=== PATIENT | male | born 1955 | race Caucasian/White ===

== ENCOUNTER 2017-03-28 08:39 | Outpatient (CLI) | payer MEDICARE ==
--- NOTE | 2017-03-28 11:40 | CT ---
CT CHEST WITH IV CONTRAST: HISTORY: Abnormal chest radiograph. Cough. FINDINGS: Centered at the superior segment left lower lobe, a predominantly cavitary irregularly-shaped mass me asures up to 4.7 cm length x 4.7 cm width x 5.8 cm depth. It abuts the posterolateral and anterior p leura. Surrounding parenchymal/airspace opacity includes central air bronchograms. A small amount o f fluid layers within the dependent portion of the cavitary lesion. Lungs are otherwise hyperinflated. Calcified granulomata within the mediastinum and lungs and spleen are consistent with healed granulomatous disease. No evidence of mediastinal adenopathy. There is calcification in the arterial structures. IMPRESSION: 1. Large cavitary left lower lobe superior segment mass. Neoplasm is favored over infection. Pleas e consider pulmonary medicine valuation for potential bronchoscopy. 2. Atherosclerosis. Findings were called to [place] at the office of Dr. Izquierdo, at 1023 hours. CODE CR POS: [facility]
== END 2017-03-28 08:40 | disposition home or self-care (01) ==
LOC: CT 08:39
PROVIDERS: ATTEND Family Medicine
DX: R93.8 Abnormal findings on diagnostic imaging of other specified body structures (principal); I70.90 Unspecified atherosclerosis; R91.8 Other nonspecific abnormal finding of lung field
CPT/HCPCS: 71260

== ENCOUNTER 2017-04-01 09:15 | Inpatient (IN) | payer MEDICARE ==
[2017-04-01 09:56] LABS: Hemoglobin 10.1 g/dL (14.0-18.0); Mean Corpuscular HGB CONC 31.8 g/dL (32.0-36.0); Mean Corpuscular Hemoglobin 28.4 pg (27.0-31.0); Mean Corpuscular Volume 89.3 fl (80.0-94.0); Mean Platelet Volume 8.7 fL (7.4-10.4); Platelet Count 394 thou/uL (130-400); RBC Distribution Width 14.4 % (11.5-14.5); Red Blood Cell (RBC) Count 3.55 mill/uL (4.70-6.10); White Blood Cell (WBC) Count 20.8 thou/uL (4.8-10.8)
[2017-04-01 10:13] LABS: Anisocytosis SLIGHT = 6-15 cells (100X) (0-5/hpf); Band 5 % (5-11); Eosinophils 1 % (0-10); Hypochromia SLIGHT = 6-15 cells (100X) (0-5/hpf); Lymphocytes 1 % (21-51); MDiff Complete? YES; Monocytes 3 % (0-10); Neutrophil 90 % (42-75); PLT Morphology Comment Appears Adequate
[2017-04-01 10:19] LABS: ALT (SGPT) 16 U/L (8-55); AST (SGOT) 18 U/L (5-34); Albumin 3.5 g/dL (3.4-4.8); Alkaline Phosphatase 153 U/L (40-150); Anion Gap 19 mmol/L (10-20); BUN (Urea Nitrogen) 13 mg/dL (8.4-25.7); Bilirubin, Total 0.2 mg/dL (0.2-1.2); CK (CPK) 45 U/L (30-200); Calc. Creatinine Clearance 0 mL/min (70-130); Carbon Dioxide 19 mmol/L (23-31); Chloride 101 mmol/L (98-107); Estimated GFR-MDRD 60; Globulin 3.9 g/dL (2.4-3.5); Glucose 110 mg/dL (80-115); Potassium 3.9 mmol/L (3.5-5.1); Protein, Total 7.4 g/dL (5.8-8.1); Sodium 135 mmol/L (136-145)
[2017-04-01 10:30] LABS: CKMB 0.9 ng/mL (0-6.6); Troponin I 0.029 ng/mL (< 0.028)
--- NOTE | 2017-04-01 10:47 | RAD ---
SINGLE VIEW CHEST: Date: 04/01/17 COMPARISON: CT chest dated 03/28/17. HISTORY: Shortness of breath. FINDINGS: Single view of the chest shows normal sized cardiomediastinal silhouette. There is an infiltrate proj ecting over the mid portion of the left thorax with central cavitation. This corresponds to abnormali ty on CT. No pneumothorax or pleural effusion is seen. IMPRESSION: Cavitary infiltrate in the left lung. POS: [facility]
[2017-04-01] MEDS ORDERED: Ondansetron ODT 4 MG TAB PO PRN (14:11)
[2017-04-01] MEDS ORDERED: HYDROcodone/Acetaminophen 10/325 mg Tablet PO PRN (14:11)
[2017-04-01] MEDS ORDERED: Acetaminophen 325 MG TAB PO PRN (14:11)
[2017-04-01] MEDS ORDERED: ABATACEPT 125 MG SC SCH (14:15)
[2017-04-01] MEDS: Sodium Chloride 0.9% 1,000 ML IV SCH (14:43)
[2017-04-01] MEDS ORDERED: Sodium Chloride 0.9% 1,000 ML IV SCH (16:00)
--- NOTE | 2017-04-01 20:10 | HP ---
ADMITTING PHYSICIAN: Luis Izquierdo M.D. HISTORY OF PRESENT ILLNESS: Patient is a 61-year-old white male well known to me, has a history of s evere rheumatoid arthritis with chronic pain, recently discovered by me to have a cavitary lesion by chest x-ray as well as CT scan. He has a bronchoscopies scheduled for tomorrow by Dr. Salas. Ken carey this time at preregistration, he was feeling extremely weak, tired, notes that he had nearly passe d out, although he denies any loss of consciousness himself. He was brought to the emergency room; t here, he was given IV fluids. After finding to be hypotensive, he has not noted any fever, nausea, v omiting, diarrhea. He does report though he lost over 40 panels over the last several months and thi s is known and documented in my previous notes. As noted, he has recently had a chest x-ray which re vealed a cavitary lesion of his left middle lung field and he has also had a recent CT scan revealed same, which is peculiar for possible neoplastic disease. He has undergone DASHAWN smears, thus far they have been negative. Otherwise, no other medical complaints. At the time of my history though he was stating he was feeling better. He was actually able to sit up in the room. Otherwise, no other medical complaints. PAST MEDICAL HISTORY: Significant for rheumatoid arthritis, chronic pain, hyperlipidemia, previous C [facility]. PAST SURGICAL HISTORY: Otherwise noncontributory. SOCIAL AND PERSONAL HISTORY: He is . He does not smoke. He is a former tobacco user. He brantley s also used other forms of drugs many years ago. ALLERGIES: He has no known allergies. CURRENT MEDICATIONS: Quinapril/hydrochlorothiazide 20/12.5 one daily, bupropion 150 mg daily, Cresto r 10 mg daily, Lyrica 100 mg b.i.d., lansoprazole 30 mg daily, prednisone 1 mg daily, leflunomide 20 mg orally, amlodipine 5 mg daily, [place] 10//325 one tablet as needed for pain. He is also on oral mo rphine. PHYSICAL EXAMINATION: VITAL SIGNS: Temperature 98.6, BP was 174/50, O2 sat 95% on 2 liters. GENERAL: This is an elderly-appearing male appears to be a little bit older than stated age and does not appear to be in any respiratory or neurological distress. HEENT: Normocephalic, atraumatic. Sclerae and conjunctivae are clear. NECK: Supple, no bruits, no masses are auscultated. Thyroid is midline without thyromegaly or thyro id masses. LUNGS: Reveal bilateral breath sounds, just mild wheezing noted on the left eye. HEART: Regular rate and rhythm without murmur, gallops or rubs. ABDOMEN: Soft, nontender, bowel sounds are present and active. No hepatosplenomegaly is noted. EXTREMITIES: No clubbing, edema or cyanosis noted at this time. LABORATORY DATA: Hemoglobin is 10.1, hematocrit 31.7, white blood count is 20.8, sodium 135, potassi um 3.9, chloride 101, CO2 of 19, BUN 13, creatinine 1.22, troponin was indeterminately elevated at 0. 2. EKG reveals sinus rhythm without evidence of acute changes. Alkaline phosphatase is slightly elevate d at 153 otherwise. IMPRESSION: Weakness, dehydration, most likely this morning with pending bronchoscopies for tomorrow due to cavitary lesion of the left lung. PLAN: Patient will be adequately hydrated. We will go ahead and get Pulmonary consult. I do think it would be safer and continue his bronchoscopy tomorrow.
[2017-04-01] MEDS: Bupropion 150 MG SR TAB PO SCH (20:44)
[2017-04-01] MEDS ORDERED: Rosuvastatin 20 MG TAB PO SCH (21:00)
[2017-04-01] MEDS ORDERED: OXYMORPHONE HCL 40 MG PO SCH (21:00)
[2017-04-01] MEDS ORDERED: Oxymorphone Hcl [Opana Er] 40 MG PO SCH (21:00)
[2017-04-01] MEDS ORDERED: Gabapentin 300 MG CAP PO SCH (21:00)
--- NOTE | 2017-04-01 23:52 | CON ---
DATE OF CONSULTATION: 04/01/2017 SERVICE: Pulmonary Medicine. REASON FOR CONSULTATION: Respiratory failure. HISTORY OF PRESENT ILLNESS: The patient is a 61-year-old white male. Recently, he has had greater t orta a 40-pound weight loss over the last 6 weeks and has had intermittent hemoptysis. A chest x-ray demonstrated a cavitary lesion. He was seen by Dr. Salas in the outpatient setting. He was set up for bronchoscopy today. The patient was talking to the budget office today. He had a horrendous we akness spell. He was found to be a little hypoxemic in the emergency department and ultimately, was admitted to the hospital. He notes having intermittent episodes of febrile illness, lack of strength which has been progressive over a long period of time, hemoptysis, and night sweats. Otherwise, he is in his usual state of health and there has been no interval change to his condition. PAST MEDICAL HISTORY: 1. Rheumatoid arthritis. 2. Hypertension. 3. Dyslipidemia. 4. Chronic pain syndrome. 5. History of stroke. PAST SURGICAL HISTORY: None. FAMILY HISTORY: Noncontributory. SOCIAL HISTORY: He has a history of smoking but quit many years ago. He denies any alcohol or illic it drugs. He is currently disabled and has multiple chronic pain issues. He is . He denies any exposure to chemicals, dust, asbestos, or tuberculosis. ALLERGIES: No known drug allergies. MEDICATIONS: List of his inpatient medications was reviewed. No specific updates were made at this time. REVIEW OF SYSTEMS: General, head, ears, eyes, nose, throat, cardiovascular, respiratory, GI, , mus culoskeletal, neurologic, and skin is negative except as mentioned in the HPI. PHYSICAL EXAMINATION: VITAL SIGNS: Afebrile, pulse 87, blood pressure 83/57, respirations 20, saturation 95% on 2 liters n bhavani cannula. GENERAL: The patient is awake and alert, in no apparent distress. LUNGS: Decent air entry. There is a slightly prolonged expiratory phase, but I do not appreciate wh eezing, rhonchi, or crackles. HEART: Normal rate, regular. ABDOMEN: Soft, nontender, nondistended. Bowel sounds are positive. MUSCULOSKELETAL: No cyanosis or clubbing. There is no pitting in the bilateral lower extremities. NEUROLOGIC: Grossly nonfocal. LABORATORY DATA: WBCs 20.8, hemoglobin 10.1, platelets 394,000. Neutrophil count is 90% with 5% ban ds. Basic metabolic profile and liver function studies were otherwise unremarkable. Troponin 0.029. Liver function studies were unremarkable. BNP was previously unremarkable. Lactate is normal. Ur inalysis is also unremarkable. Sputum for acid-fast bacilli is negative to date. Culture is current ly pending. IMAGIN. CT of the chest demonstrates cavitary mass in the left lower lobe. It appears as though the supe rior segment, posterior segment, and lateral segment of the left lower lobe all likely lead in an are a of the mass. Otherwise, there is no cardiopulmonary abnormality identified. 2. Chest x-ray demonstrates a cavitary mass that was previously noted on CT scan. There is no new c ardiopulmonary abnormality identified. ASSESSMENT: 1. Cavitary mass. 2. Leukocytosis. PLAN: At this point, we will hold his blood pressure medications because he has marginal blood press ures. He was previously scheduled for a bronchoscopy tomorrow morning and I do not see anything that is going to prevent us from perhaps proceeding with that. We will make him n.p.o. after midnight. After the sample was collected, empiric antibiotics could be initiated. Our differential remains wid e and includes infectious, neoplastic, and inflammatory conditions. We will know more after a sample can be obtained.
[2017-04-02] MEDS: Sodium Chloride 0.9% 1,000 ML IV SCH (04:39)
[2017-04-02] MEDS ORDERED: Fentanyl 100 MCG/2 ML VIAL ONE (06:53)
[2017-04-02] MEDS ORDERED: Lidocaine 1% (PF) 30 ML VIAL ONE (07:12)
[2017-04-02] MEDS ORDERED: Succinylcholine Chloride 20 MG/ML 10 ml SYRINGE FS ONE ×2 (07:24→15:22)
[2017-04-02] MEDS ORDERED: Calcium Carbonate 600 MG TAB PO SCH (09:00)
[2017-04-02] MEDS ORDERED: Folic Acid 1 MG TAB PO SCH (09:00)
[2017-04-02] MEDS ORDERED: VITAMIN E 1000 UNIT PO SCH (09:00)
[2017-04-02] MEDS ORDERED: ERGOCALCIFEROL 800 UNIT PO SCH (09:00)
[2017-04-02] MEDS ORDERED: Hydrochlorothiazide 25 MG TAB PO SCH (09:00)
[2017-04-02] MEDS ORDERED: Clopidogrel Bisulfate 75 MG TAB PO SCH (09:00)
[2017-04-02] MEDS ORDERED: Non-Formulary Item 1 EACH (Lansoprazole [Lansoprazole] 30 MG) PO SCH (09:00)
--- NOTE | 2017-04-02 09:14 | OP ---
DATE OF PROCEDURE: 04/02/2017 PROCEDURES PERFORMED: Fiberoptic bronchoscopy with endobronchial biopsy, transbronchial biopsy, wash ings, and brushings. PREOPERATIVE DIAGNOSIS: Lung mass. POSTOPERATIVE DIAGNOSIS: Lung mass cavitary. ANESTHESIA: General endotracheal. DESCRIPTION OF PROCEDURE: Informed consent was obtained from the patient prior to the procedure. He understood the risks involved and agreed to proceed. The patient was brought to the endoscopy suite and was intubated by Anesthesia and given general anes thesia. An adaptor was placed on the patient's endotracheal tube while he was on mechanical ventilat ion. Scope was placed through the adaptor into the endotracheal tube. The trachea was normal in balta earance. There was some mucus present at the farrukh. The right mainstem bronchus, right upper lobe, right middle lobe and right lower lobe were normal in appearance. Of note, the right upper lobe had four segments instead of three. The left mainstem bronchus was normal in appearance. The left uppe r lobe was normal in appearance. 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 A series of endobronchial brushings were done in this region. The scope could be passed around this. I coul d not get the scope to retroflex entirely up into the superior segment as the cavitary mass kept push ing the brush and biopsy forceps downward. A series of brushings and washings were done in this faith on. He tolerated the procedure well and was sent to the recovery room in stable condition.
[2017-04-02] MEDS: Bupropion 150 MG SR TAB PO SCH (10:08)
[2017-04-02 13:26] VITALS: BMI 24.5
--- NOTE | 2017-04-02 13:33 | DPRG ---
DATE OF SERVICE: 04/02/2017 Mr. Jiménez was admitted yesterday with a near syncopal episode. He has undergone successful bronchos copy which appeared this had been planned by Dr. Salas. Specimens are pending. He is ready to go home. On discharge he notes no further lightheadedness, dizziness at this time. PHYSICAL EXAMINATION LUNGS: Clear. HEART: Reveals a regular rate and rhythm without murmurs, gallops or rubs. ABDOMEN: Soft, nontender, bowel sounds are active. No hepatosplenomegaly is noted. IMPRESSION: (At the time of admission). Syncopal episode with a history of a mass defined by CT on his left lung. He had a bronchoscopy performed and tolerated that well. Pathology is now pending. PLAN: He will be discharged home on his home medications and follow up on a p.r.n. basis once his p athology is defined.
[2017-04-02] MEDS ORDERED: Lidocaine 1% PF 5 ML VIAL ONE (15:22)
[2017-04-02] MEDS ORDERED: Ondansetron HCl/PF 4 MG/2 ML Vial ONE (15:22)
[2017-04-02] MEDS ORDERED: PHENYLEPHRINE-NS 100 MCG/ML 10 ML SYRINGE ONE (15:22)
[2017-04-02] MEDS ORDERED: Dexamethasone 20 MG/5 ML VIAL ONE (15:22)
[2017-04-02] MEDS ORDERED: Propofol 200 MG/20 ML VIAL ONE (15:22)
[2017-04-02 19:30] VITALS: BP 100/66; TEMP 98.7
[2017-04-05 10:21] LABS: Fungus Stain Final report (.)
--- NOTE | 2017-04-06 14:21 | EKG ---
Test Reason : DYSPNEA Blood Pressure : / mmHG Vent. Rate : 105 BPM Atrial Rate : 105 BPM P-R Int : 118 ms QRS Dur : 084 ms QT Int : 312 ms P-R-T Axes : 054 052 040 degrees QTc Int : 412 ms Sinus tachycardia Nonspecific ST abnormality Abnormal ECG Confirmed by MARQUEZ KELLEY, TUSHAR ([id number]), telegraph editor OLIMPIA GOODWIN ([id number]) on 04/06/2017 2:21:31 PM Referred By: Confirmed By:TUSHAR ZAYAS MD
[2017-04-08] MEDS ORDERED: ABATACEPT 125 MG SC SCH (09:00)
== END 2017-04-02 19:30 | disposition home or self-care (01) | DRG 204 ==
LOC: ERS 09:15 → ERHOLD 10:58 → T4-B 14:12
PROVIDERS: ADMIT Family Medicine; ATTEND Family Medicine
PROC: 0BDB8ZX Extraction of Left Lower Lobe Bronchus, Via Natural or Artificial Opening Endoscopic, Diagnostic (ICD-10-PCS; principal; 2017-04-02)
DX: R91.8 Other nonspecific abnormal finding of lung field (principal); I95.9 Hypotension, unspecified; E86.0 Dehydration; E78.5 Hyperlipidemia, unspecified; I10 Essential (primary) hypertension; Z86.73 Personal history of transient ischemic attack (TIA), and cerebral infarction without residual deficits; M06.9 Rheumatoid arthritis, unspecified; Z87.891 Personal history of nicotine dependence; R53.1 Weakness
CPT/HCPCS: 36415; 71045; 80053; 82550; 82553; 83605; 83880; 84484; 85025; 87070; 87077; 87102; 87116; 87186; 87205; 87206; 88112; 88305; 88312; 88313; 93005; 94760; 96360; J1100; J2001; J2405; J2704; J3010

== ENCOUNTER 2017-04-26 07:48 | Outpatient (CLI) | payer MEDICARE ==
--- NOTE | 2017-04-26 08:30 | RAD ---
PA AND LATERAL VIEWS OF CHEST: Date: 04/26/17 HISTORY: Dyspnea. FINDINGS: Comparison made with exam of 04/01/17. The heart size is normal. The lungs are expanded. The cavitary lesion in the left lung is again seen with improvement in the adjacent infiltrate. No pneumothoraces or pleural effusions are seen. IMPRESSION: Interval improvement without resolution of left lung findings since 04/01/17. POS: [facility]
== END 2017-04-26 07:49 | disposition home or self-care (01) ==
LOC: RAD 07:48
PROVIDERS: ATTEND Internal Medicine Critical Care Medicine
DX: R06.00 Dyspnea, unspecified (principal)
CPT/HCPCS: 71046

== ENCOUNTER 2017-05-22 14:23 | Outpatient (CLI) | payer MEDICARE ==
--- NOTE | 2017-05-22 16:00 | RAD ---
CHEST PA AND LATERAL: 05/22/17 HISTORY: 61-year-old male with history of dyspnea. COMPARISON: 04/26/17. FINDINGS: There is a persistent but decreasing size pneumocyst/cavity in the superior segment of the left lowe r lobe decreasing in size as well as decreasing in wall thickness when compared to the 04/26/17 study. Heart size is normal. Stable old granulomatous disease. Biapical pleural thickening. IMPRESSION: Decrease in size cavity in the superior segment of the left lower lobe with decrease in wall thicknes s. Biapical pleural thickening. Old granulomatous disease. POS: [facility]
== END 2017-05-22 14:24 | disposition home or self-care (01) ==
LOC: RAD 14:23
PROVIDERS: ATTEND Internal Medicine Critical Care Medicine
DX: R06.00 Dyspnea, unspecified (principal); J84.10 Pulmonary fibrosis, unspecified; J92.9 Pleural plaque without asbestos
CPT/HCPCS: 71046

== ENCOUNTER 2017-07-10 08:09 | Outpatient (CLI) | payer MEDICARE | END 2017-07-10 08:10 | disposition home or self-care (01) | LOC: BICCT 08:09 | PROVIDERS: ATTEND Family Medicine | DX: I63.8 Other cerebral infarction (principal); G45.9 Transient cerebral ischemic attack, unspecified; Z86.73 Personal history of transient ischemic attack (TIA), and cerebral infarction without residual deficits | CPT/HCPCS: 70450 ==

== ENCOUNTER 2017-07-25 09:25 | Observation (INO) | payer MEDICARE ==
[2017-07-25 09:51] LABS: #Basophils 0.1 thou/uL (0.0-0.2); #Eosinphils 0.4 thou/uL (0.0-0.7); #Lymphocytes 1.1 thou/uL (1.20-3.40); #Monocytes 0.5 thou/uL (0.11-0.59); #Neutrophils 5.5 thou/uL (1.40-6.50); %Basophils 0.9 % (0.0-1.0); %Eosinophils 5.3 % (0.0-10.0); %Lymphocytes 14.5 % (21.0-51.0); %Monocytes 7.1 % (0.0-10.0); %Neutrophils 72.3 % (42.0-75.0); Hemoglobin 11.7 g/dL (14.0-18.0); Mean Corpuscular HGB CONC 33.6 g/dL (32.0-36.0); Mean Corpuscular Hemoglobin 28.2 pg (27.0-31.0); Mean Corpuscular Volume 83.8 fl (80.0-94.0); Mean Platelet Volume 9.9 fL (7.4-10.4); Platelet Count 209 thou/uL (130-400); RBC Distribution Width 14.9 % (11.5-14.5); Red Blood Cell (RBC) Count 4.14 mill/uL (4.70-6.10); White Blood Cell (WBC) Count 7.6 thou/uL (4.8-10.8)
[2017-07-25 10:11] LABS: ALT (SGPT) 7 U/L (8-55); AST (SGOT) 11 U/L (5-34); Albumin 4.6 g/dL (3.4-4.8); Alkaline Phosphatase 70 U/L (40-150); Anion Gap 21 mmol/L (10-20); BUN (Urea Nitrogen) 31 mg/dL (8.4-25.7); Bilirubin, Total Less than 0.2 mg/dL (0.2-1.2); CK (CPK) 241 U/L (30-200); Calc. Creatinine Clearance 0 mL/min (70-130); Carbon Dioxide 13 mmol/L (23-31); Chloride 109 mmol/L (98-107); Estimated GFR-MDRD 38; Glucose 118 mg/dL (80-115); Potassium 4.6 mmol/L (3.5-5.1); Protein, Total 7.6 g/dL (5.8-8.1); Sodium 138 mmol/L (136-145)
[2017-07-25 10:16] LABS: CKMB 2.6 ng/mL (0-6.6); Troponin I Less than 0.010 ng/mL (< 0.028)
[2017-07-25] MEDS ORDERED: ISOVUE-370 76%-LOCM 1 ML ONE (11:01)
--- NOTE | 2017-07-25 11:18 | RAD ---
PORTABLE UPRIGHT FRONTAL CHEST RADIOGRAPH: Date: 07-25-17 Comparison: 04-01-17 History: Syncope. FINDINGS: There is widening of the superior mediastinum when compared to the prior examination, which may be se condary to portable technique and shallow inspiration. There is patchy linear density in the left perihilar region and medial left lung base. No pneumothora x, lobar consolidation, or alveolar edema. IMPRESSION: Widened superior mediastinum, significance uncertain given portable imaging. Thus, PA and lateral emiliano ging of the chest is advised to better evaluate the mediastinum. POS: [facility]
--- NOTE | 2017-07-25 11:54 | CT ---
CTA CHEST WITH 3D VOLUME RENDERING: Date: 07/25/17 COMPARISON: 03/28/17. CLINICAL HISTORY: Dyspnea, near syncope, shortness of breath. FINDINGS: There is no large, central filling defect of pulmonary arterial system to indicate acute pulmonary em bolus. Redemonstration of lobular cystic lesion of the superior segment left lower lobe abutting the left ma renato fissure. The lesion has decreased in size from prior exam with near complete interval resolution of surrounding parenchymal density. There does remain surrounding ground-glass opacity and interstiti al prominence, as well as overlying dural thickening. Redemonstration of calcific density of the subp leura of the right lower lobe. There is also nonspecific scattered subpleural ground-glass opacificat ion. No effusion or pneumothorax. There is scattered vascular disease, including dense coronary arter y calcium. Prominent bilateral retroareolar densities may relate to gynecomastia. Imaged upper abdome n reveals no acute findings. There is an incompletely assessed, partially visualized hypodensity of t he right hepatic lobe. There are diffuse granulomatous calcifications. No additional significant interval detrimental change. IMPRESSION: 1. No large, central pulmonary embolus. 2. Redemonstration of lobular cystic lesion of the superior segment left lower lobe with interval de crease of surrounding parenchymal consolidation. This may relate to residua from infectious/inflammat ory process. There does remain a degree of mild surrounding ground-glass reticulonodularity. Follow-u p with pulmonary medicine consultation is warranted for continued care. POS: [facility]
[2017-07-25 11:58] LABS: Bilirubin Negative (Negative); Blood, Urine Negative (Negative); Clarity CLEAR (Clear); Glucose, Urine (Dipstick) Negative (Negative); Leukocyte Negative (Negative); Nitrite Negative (Negative); Protein, Urine (Dipstick) Negative (Neg-Trace); Specific Gravity, Urine 1.021 (1.002-1.036); Urobilinogen 0.2 mg/dL (0.2-1.0)
[2017-07-25 13:10] LABS: Troponin I Less than 0.010 ng/mL (< 0.028)
[2017-07-25] MEDS ORDERED: Ondansetron HCl/PF 4 MG/2 ML Vial IVP PRN (15:18)
[2017-07-25] MEDS ORDERED: Ondansetron ODT 4 MG TAB SL PRN (15:18)
[2017-07-25 16:14] VITALS: BMI 24.4
[2017-07-25] MEDS: Sodium Chloride 0.9% 1,000 ML IV SCH ×3 (16:15→21:12)
[2017-07-25] MEDS: predniSONE 1 MG TAB PO SCH ×2 (18:15→21:15)
[2017-07-25] MEDS ORDERED: Rosuvastatin 20 MG TAB PO SCH (21:00)
[2017-07-25] MEDS: Bupropion 150 MG SR TAB PO SCH (21:13)
[2017-07-25] MEDS: Pregabalin 50 MG CAP PO SCH (21:15)
[2017-07-26] MEDS: Sodium Chloride 0.9% 1,000 ML IV SCH ×3 (00:46→14:13)
--- NOTE | 2017-07-26 04:35 | HP ---
CHIEF COMPLAINT: Near syncope. HISTORY OF PRESENT ILLNESS: Mr. Jiménez is a 62-year-old male patient of Dr. Luis Izquierdo who was brought to the emergency room by personnel from the [facility]. He had been referred to them for pain management by Dr. Izquierdo and upon arrival in their office, had a near syncopal episode, short of breath, tachycardic. He was sent to the emergency room for further evalua tion where he was found to be orthostatic and was given some fluids and his pressure, sitting or lyin g down, was 100 to 115, but when he would stand up and go, the systolic was dropped into the low 80s, so he was admitted for further fluid hydration. PAST MEDICAL HISTORY: Positive for chronic pain syndrome associated with rheumatoid arthritis. He h as got a cavitating left upper lobe lung lesion being followed by Dr. Salas with Pulmonology. He h ad a recent evaluation of this lesion in March of this year, was found to be benign in nature and n o obvious cause other than inflammation. Also has a history of hypertension, hyperlipidemia, previou s CVA with no obvious musculoskeletal deficits noted. PAST SURGICAL HISTORY: None. FAMILY HISTORY: Noncontributory. SOCIAL HISTORY: He is disabled due to his pain. He has quit smoking many years ago. He is , has no toxic habits. ALLERGIES: REGLAN causes a dystonic-type reaction. CURRENT MEDICATIONS: He takes quinapril/hydrochlorothiazide 20/12.5 daily. He takes amlodipine 5 mg daily. He is on Crestor 10 mg daily, Prevacid 30 mg daily, Wellbutrin 150 mg daily, Lyrica 100 mg t wice a day, prednisone 1 mg q.6 hours, leflunomide 20 mg daily. He is also get a [place], fentanyl p atch 20 mcg a day. He is on day #5. REVIEW OF SYSTEMS: He denies any headache or visual changes. No trouble chewing or swallowing. No fevers or chills. Denies any chest pain, no cough, no hemoptysis. Denies any changes in bowel or bl adder habits. No abdominal pain, no nausea, no vomiting. Denies any hematemesis. Denies any diarrh ea, denies any hematochezia or bright red blood per rectum. Denies any dysuria or hematuria. Denies any seizure activity. No paresis or paresthesias. Denies any homicidal or suicidal ideations. PHYSICAL EXAMINATION: VITAL SIGNS: He is afebrile. Temperature 97.5, pulse 84, respiration is 22, satting 95%, blood pres sure upon arrival to the floor 101/62 and that is lying down. HEENT: Normocephalic and atraumatic cranium. Pupils are equal, round, and reactive to light and acc ommodation. Extraocular movements are intact. Mucous membranes are slightly dry. NECK: Supple. No JVD, no bruits, no thyromegaly. LUNGS: Clear to auscultation bilaterally, possibly left upper lobe. HEART: S1, S2, with no rubs, murmurs, or gallops. ABDOMEN: Soft, nontender, nondistended. Slightly overweight, but no hepatosplenomegaly. Bowel soun ds are 1+. GENITOURINARY: Deferred. EXTREMITIES: Good palpable pulses x4. No cyanosis, clubbing, or edema. NEUROLOGIC: Alert and oriented x4. Cranial nerves II through XII are equal and symmetrical. No mot or or sensory deficits noted. There is a little slurred speech affect, but I am not sure of that fro m his history of a CVA or from his not having upper dentures in place. LABORATORY AND X-RAY FINDINGS: White count is normal at 7.6, H and H is 11.5 and 34.5 respectively w ith platelets of 209,000. Sodium is 138, potassium is 4.6, chloride 109, bicarb 13, BUN 31, creatini ne is 1.8. GFR is 38 and his glucose at 118. AST is normal at 11, ALT is at 7. CK slightly up to 4 1. CK-MB is normal at 2.6. Troponins have been normal, multiple times undetectable. Beta-natriuret ic peptide is normal at 14. His urinalysis is negative. Chest x-ray showed a portable possible wide judie mediastinum compared to the past. CTA was done showing no change to the cystic-type lesion in th e left upper lobe and they were looking for a pulmonary embolism and that was negative. EKG showed n o acute changes. ASSESSMENT AND PLAN: Near syncopal episode with orthostasis with mild renal insufficiency like all p ointing towards some level of dehydration. We kept in and given IV fluids overnight. We will also c heck his orthostatics in the morning, Dr. Izquierdo will see him at that point. The other possibility co uld be a side effect from the fentanyl patch that just included in the differential.
[2017-07-26] MEDS: Pregabalin 50 MG CAP PO SCH (08:42)
[2017-07-26] MEDS: Bupropion 150 MG SR TAB PO SCH (08:42)
[2017-07-26] MEDS: predniSONE 1 MG TAB PO SCH ×2 (08:42→14:31)
[2017-07-26] MEDS ORDERED: Hydrochlorothiazide 25 MG TAB PO SCH (09:00)
[2017-07-26] MEDS ORDERED: Amlodipine 5 MG TAB PO SCH (09:00)
[2017-07-26] MEDS ORDERED: Clopidogrel Bisulfate 75 MG TAB PO SCH (09:00)
[2017-07-26] MEDS ORDERED: Leflunomide 10 mg Tablet PO SCH (09:00)
[2017-07-26 11:37] VITALS: BP 115/72; TEMP 97.4
--- NOTE | 2017-07-26 17:03 | PRG ---
DATE OF SERVICE: 07/26/2017 SUBJECTIVE: Mr. Jiménez seen this morning on rounds. He is not having any further near syncopal epis odes. He is feeling better. After reviewing his symptomatology, he was felt like he was possibly de hydrated due to poor p.o. intake. Nonetheless, he has been discharged home today. He will continue on his current home medications, Lyrica 100 mg b.i.d., Protonix 40 mg daily, Plavix 75 mg daily, bupr opion 150 mg b.i.d., quinapril one tablet daily, amlodipine 5 mg daily, prednisone 1 mg q.i.d., Crestor 20 mg daily, leflunomide 20 mg daily, as well as mg daily. He will follow up with the pain management physicians on a p.r.n. basis.
[2017-07-27] MEDS ORDERED: BUPRENORPHINE 20 MCG TD SCH (09:00)
[2017-07-27] MEDS ORDERED: BUPRENORPHINE 20 MCG/HR TOP SCH (09:00)
== END 2017-07-26 14:33 | disposition home or self-care (01) ==
LOC: ERS 09:25 → 2SW 12:28 → ERS 14:56
PROVIDERS: ADMIT Family Medicine; ATTEND Family Medicine
DX: R55 Syncope and collapse (principal); R06.02 Shortness of breath; R00.0 Tachycardia, unspecified; G89.4 Chronic pain syndrome; M06.9 Rheumatoid arthritis, unspecified; Z87.891 Personal history of nicotine dependence; Z79.52 Long term (current) use of systemic steroids; Z79.899 Other long term (current) drug therapy; Z88.8 Allergy status to other drugs, medicaments and biological substances
CPT/HCPCS: 71045; 71275; 80053; 81003; 82550; 82553; 83605; 83880; 84484 ×2; 85025; 85379; 87040; 87086; 93005; 94760; 96360; 96361 ×3; 99285; G0378; 36415

== ENCOUNTER 2017-09-19 17:52 | Inpatient (IN) | payer MEDICARE ==
[2017-09-19] MEDS ORDERED: Piperacillin/Tazobactam 4.5 GM VIAL ONE (18:24)
[2017-09-19 18:37] LABS: Hemoglobin 8.5 g/dL (14.0-18.0); Mean Corpuscular HGB CONC 33.5 g/dL (32.0-36.0); Mean Corpuscular Hemoglobin 28.5 pg (27.0-31.0); Mean Corpuscular Volume 85.2 fL (78.0-98.0); Mean Platelet Volume 8.7 fL (7.4-10.4); Platelet Count 303 thou/uL (130-400); RBC Distribution Width 18.1 % (11.5-14.5)
[2017-09-19 18:48] LABS: Bilirubin Negative (Negative); Blood, Urine Negative (Negative); Clarity CLEAR (Clear); Glucose, Urine (Dipstick) Negative (Negative); Leukocyte Negative (Negative); Nitrite Negative (Negative); Protein, Urine (Dipstick) Negative (Neg-Trace); Urobilinogen 0.2 mg/dL (0.2-1.0)
[2017-09-19 18:54] LABS: ALT (SGPT) Less than 7 U/L (8-55); AST (SGOT) 12 U/L (5-34); Albumin 4.1 g/dL (3.4-4.8); Alkaline Phosphatase 77 U/L (40-150); Anion Gap 28 mmol/L (10-20); BUN (Urea Nitrogen) 37 mg/dL (8.4-25.7); Bilirubin, Total Less than 0.2 mg/dL (0.2-1.2); Calc. Creatinine Clearance 0 mL/min (70-130); Calcium 8.6 mg/dL (7.8-10.44); Carbon Dioxide 10 mmol/L (23-31); Chloride 104 mmol/L (98-107); Estimated GFR-MDRD 17; Globulin 3.2 g/dL (2.4-3.5); Glucose 86 mg/dL (80-115); Potassium 5.4 mmol/L (3.5-5.1); Protein, Total 7.3 g/dL (5.8-8.1); Sodium 137 mmol/L (136-145)
[2017-09-19] MEDS ORDERED: Hydrocortisone Sod Succ/PF 100 mg/2 ml Vial ONE (18:54)
[2017-09-19 19:03] LABS: Band 30 % (5-11); Lymphocytes 1 % (21-51); MDiff Complete? YES; Monocytes 7 % (0-10); Neutrophil 61 % (42-75); Reactive Lymphocytes 1 % (0-10)
--- NOTE | 2017-09-19 19:27 | RAD ---
PORTABLE AP CHEST X-RAY 09/19/17 HISTORY: Diarrhea for a few hours, weakness. COMPARISON: 07/25/17. FINDINGS: The cardiac silhouette is magnified by projection. The pulmonary vasculature is within normal limits. Calcified granuloma is seen at the right lung base. The lungs are otherwise clear. Multiple remote l eft sided rib fractures are present. Vascular calcifications are seen in the thoracic aorta. There brantley s been no significant interval change from prior exam. IMPRESSION: 1. No acute cardiopulmonary process. 2. Multiple remote left sided rib fractures. 3. There was widening of the mediastinum on the prior exam, but this is not seen on this study, and findings on the prior exam may have been related to the portable technique. POS: [facility]
--- NOTE | 2017-09-19 20:04 | RAD ---
FOUR VIEWS RIGHT ELBOW: 09/19/17 HISTORY: Right elbow injury. FINDINGS: There are mild degenerative changes involving the right elbow; however, no acute fracture or dislocat ion is seen. There is suggestion of a small joint effusion. There is prominent subcutaneous soft tiss ue swelling seen at the dorsal aspect of the proximal ulna and at the level of the elbow. There is a very tiny linear osseous density seen just dorsal to the olecranon process of the ulna of uncertain e tiology. Very tiny avulsion injury cannot be excluded. IMPRESSION: 1. Suggestion of a small joint effusion. While no obvious displaced fracture is seen, this quest ions the possibility of a radiographic occult fracture, and followup imaging of the elbow is recommen ded. 2 Tiny linear osseous density posterior to the olecranon process of the ulna. Very tiny avulsion injury in this region could not be excluded. 3. Prominent subcutaneous soft tissue swelling dorsal to the proximal ulna as well as at the lev el of the elbow. POS: [facility]
[2017-09-19] MEDS ORDERED: Bacitracin Zinc 1 Packet ONE (20:14)
--- NOTE | 2017-09-19 21:02 | RAD ---
PORTABLE AP CHEST X-RAY 09/19/17 HISTORY: Diarrhea for a few hours. COMPARISON: 09/19/17 at 1857 hours. FINDINGS: There has been interval placement of a right internal jugular vein central venous catheter with the t ip overlying the region of the cavoatrial junction. No pneumothorax or pleural effusion is seen. Calc ified granuloma is seen at the right lung base. The lungs are otherwise clear. Vascular calcification s seen in the thoracic aorta. The cardiac silhouette and pulmonary vasculature are within normal limi ts. IMPRESSION: Interval placement of a right internal jugular vein central venous catheter without evidence of a pne umothorax. POS: [facility]
[2017-09-19] MEDS ORDERED: Acetaminophen 500 MG TAB ONE (21:48)
--- NOTE | 2017-09-19 22:18 | CT ---
CT OF THE ABDOMEN AND PELVIS WITHOUT CONTRAST 09/19/17 COMPARISON: None. HISTORY: Diarrhea for two hours and abdominal pain. The patient has weakness. TECHNIQUE: Multiple contiguous axial images were obtained in a CT of the abdomen and pelvis without contrast. Co stephanie reformats were performed. FINDINGS: Scattered calcifications in the liver and spleen are from prior granulomatous disease. The gallbladde r, kidneys, adrenal glands, and pancreas are unremarkable, although evaluation is limited without IV contrast. No free air, free fluid, or stranding changes are seen in the abdomen or pelvis. The large and small bowel are normal in caliber. The appendix is unremarkable. A 1.8 cm round structure in the right lowe r quadrant of the abdomen within the bowel mesentery may represent an enlarged lymph node with centra l fat or an area of fat necrosis. No abdominal or pelvic lymphadenopathy are seen. Atherosclerotic ca lcifications are seen in the aorta. Degenerative changes are seen in the spine. A calcified granuloma is seen in the right lung base. There are multiple remote healed bilateral rib fractures. The chest wall soft tissues are unremarkable. IMPRESSION: No evidence of acute intra-abdominal/pelvic abnormality. POS: [facility]
[2017-09-19] MEDS ORDERED: Acetaminophen 325 MG TAB PO PRN (22:52)
[2017-09-19] MEDS ORDERED: Norepinephrine 8 MG/0.9% NS 250 ML IVPB SCH (23:15)
[2017-09-19] MEDS ORDERED: VANCOMYCIN IVPB PRN (23:17)
[2017-09-19] MEDS: Sodium Chloride 0.9% 1,000 ML IV SCH (23:45)
[2017-09-20 04:59] LABS: Anion Gap 18 mmol/L (10-20); BUN (Urea Nitrogen) 38 mg/dL (8.4-25.7); Calc. Creatinine Clearance 30 mL/min (70-130); Calcium 7.3 mg/dL (7.8-10.44); Carbon Dioxide 12 mmol/L (23-31); Chloride 112 mmol/L (98-107); Estimated GFR-MDRD 26; Glucose 112 mg/dL (80-115); Potassium 3.8 mmol/L (3.5-5.1); Sodium 138 mmol/L (136-145)
[2017-09-20 05:28] LABS: Band 42 % (5-11); Hemoglobin 6.7 g/dL (14.0-18.0); Lymphocytes 3 % (21-51); MDiff Complete? YES; Mean Corpuscular HGB CONC 30.9 g/dL (32.0-36.0); Mean Corpuscular Hemoglobin 27.1 pg (27.0-31.0); Mean Corpuscular Volume 87.6 fL (78.0-98.0); Mean Platelet Volume 8.3 fL (7.4-10.4); Monocytes 1 % (0-10); Neutrophil 54 % (42-75); Platelet Count 241 thou/uL (130-400); RBC Distribution Width 17.6 % (11.5-14.5); Red Blood Cell (RBC) Count 2.48 mill/uL (4.70-6.10); White Blood Cell (WBC) Count 20.1 thou/uL (4.8-10.8)
[2017-09-20] MEDS: Piperacillin/Tazobactam 4.5 GM in Sodium Chloride 0.9% 100 ML IVPB SCH ×4 (05:38→17:56)
[2017-09-20] MEDS: Sodium Chloride 0.9% 1,000 ML IV SCH ×3 (05:38→18:32)
[2017-09-20] MEDS: HYDROcodone/Acetaminophen 10/325 mg Tablet PO PRN ×2 (06:24→20:54)
--- NOTE | 2017-09-20 08:40 | CON ---
DATE OF CONSULTATION: 09/20/2017 REQUESTING PHYSICIAN: Luis Izquierdo. CONSULTING PHYSICIAN: Handy Quigley M.D. REASON FOR CONSULTATION: Right elbow pain with recent injury. HISTORY OF PRESENT ILLNESS: This is a 62-year-old white male who presented to the emergency departme with complaints of diarrhea and altered mental status. He has a history of rheumatoid arthritis a nd a longstanding history of debilitating pain. He has also had a recent pulmonary abscess, but has finished his antibiotic treatment. Of note, in the emergency department, patient did report a fall r ecently, about 1-2 days ago. Family member at bedside stated that he bumped his elbow. X-rays were obtained that showed a possible fracture. We have been consulted for this reason. Currently, rosendo greer denies falling, but the family member at the bedside reports that he did lose his balance and fall about 2 days ago. He struck his elbow when he fell. He denies any numbness or tingling. He reports pain to the posterior right elbow. He denies hitting his head when he fell. He is left hand domina nt. He denies any other new orthopedic injuries at this time. PAST MEDICAL HISTORY: Significant for hepatitis, rheumatoid arthritis, recent pulmonary abscess and depression. PAST SURGICAL HISTORY: Significant for hernia repair. SOCIAL HISTORY: Patient denies alcohol use. He is a former marijuana user. Former tobacco user. H e states that he quit smoking more than 10 years ago. Patient lives at home with his . FAMILY HISTORY: Reviewed and noncontributory. REVIEW OF SYSTEMS: Ten point review of systems was conducted and otherwise negative except for as st ated above. ALLERGIES: REGLAN causes itching. PHYSICAL EXAMINATION: VITAL SIGNS: Blood pressure of 113/64, heart rate of 83, respiratory rate of 19, O2 saturation of 98 % on room air. GENERAL: Patient is awake and alert. He is appropriate with exam today. He is pleasant and coopera tive. He is in no acute distress. is at bedside. HEENT: Head is normocephalic, atraumatic. NECK: Supple. Trachea is midline. Breathing is nonlabored. EXTREMITIES: The right upper extremity is visualized in the posterior long arm splint. This was rem korey at bedside today. There does appear to be an abrasion which is dressed over the dorsal aspect o f the wrist. There is also an abrasion noted to the olecranon region of the elbow. This appears sup erficial. There is no active bleeding. No discharge from this area. No surrounding erythema. The patient is tender to palpation, specifically along the olecranon. There is a palpable fluid collecti on in this region. He is nontender over the radial head. He is nontender over the forearm. Active and passive pronation and supination are intact. The patient is also able to actively flex and exten d his elbow. Distal neurovascular status is intact. Patient has 5/5 strength distally. RADIOGRAPHIC FINDINGS: Including views of the elbow show evidence of a possible avulsion type fractu re off the olecranon. There does appear to be a small joint effusion. I have reviewed these x-rays and agreed. No dislocation visualized. Alignment maintained. LABORATORY DATA: Including a CBC from today 09/20/2017 shows a white blood cell count of 20.1, hemog lobin of 6.7, hematocrit of 21.7 and platelet count of 241. ASSESSMENT AND PLAN: Right elbow contusion, posterior. PLAN: At this point, I do not see any significant findings on the x-rays. There does appear to be a small avulsion type injury off the olecranon. This is consistent with his exam findings today. It is likely that he bumped his elbow when he fell to the ground. He does not need to be placed in a po sterior splint any longer. I will write an order for a sling as tolerated if he gets up and moves ar ound. He may advance activities as tolerated with regards to the right upper extremity. He does not have any limitations at this time. We have dressed the abrasion to his right elbow. Thank you for this consultation.
[2017-09-20] MEDS: Pantoprazole 40 MG VIAL IVP SCH (09:32)
[2017-09-20] MEDS: Vancomycin HCl 1 GM in Premix Bag 1 BAG IVPB SCH (09:33)
[2017-09-20] MEDS ORDERED: Sodium Chloride 0.9% 1,000 ML IV SCH (10:00)
--- NOTE | 2017-09-20 11:29 | CON ---
DATE OF CONSULTATION: 09/20/2017 HISTORY OF PRESENT ILLNESS: Mr. Jimnéez is a very pleasant gentleman, who presented with severe diarr hea and hypotension. He subsequently has been in the ICU on pressors and volume resuscitation and is gradually improving. He has actually fallen prior to this admission. He says he could get off the commode at home without having diarrhea, but since he has been here only had one small bowel movement . He was confused coming into the hospital. His family thought maybe took some extra pain medicine. PAST MEDICAL HISTORY: 1. Remarkable for rheumatoid arthritis. 2. History of a lung abscess with recent antimicrobial therapy. 3. History of a fall, striking his elbow and possible fracture. 4. History of hepatitis. 5. History of depression. 6. History of herniorrhaphy. 7. History of bronchoscopy in 03/2017 with did not identify a malignant process like last CAT scan 0 07/25/2017, he had a cystic lesion in his left lower lobe that is improved in appearance. 8. History of lipid disorder. 9. History of chronic pain. 10. History of hypertension. FAMILY HISTORY: Positive for vascular disease and strokes. SOCIAL HISTORY: He is a nonsmoker, nondrinker. He is a former smoker. He is . His is in the room, appears to be very supportive. ALLERGIES: He has no known drug allergies. MEDICATIONS: Prior to admission have been reviewed. REVIEW OF SYSTEMS: Ten-point is negative with exception of ear pain. PHYSICAL EXAMINATION: GENERAL: He is in no distress. Appears older than his age. VITAL SIGNS: His heart rates in the 80s. Blood pressure 100/61, respiratory rate in the 20s. HEENT: Pupils are equal. Sclerae is anicteric. NECK: Supple, no lymphadenopathy. He has a crusty lesion on the superior aspect of his right ear th at is extremely tender to palpation. Apparently, there was purulent exudate coming out of this last night. NECK: Supple. LUNGS: Clear. HEART: Regular rhythm. S1 and S2 are normal. ABDOMEN: Soft and nontender. EXTREMITIES: Without clubbing, cyanosis, or edema. NEUROLOGIC: Grossly nonfocal. Chest radiograph done in the emergency room yesterday afternoon shows a central line, no alveolar inf iltrates. IMPRESSION: Hypotension secondary to diarrhea? associated with sepsis. He has a white count of 20 w ith 42% bands, which argues for bacterial process. With his positive fluid balance, with his volume resuscitation he is dropped his hemoglobin 2 grams. He needs a couple units of blood today at minimum. PLAN: Continue antimicrobial therapy, volume resuscitation, weaning off pressors and serial exams in the Critical Care Unit. This is a 70-minute consult greater than 50% of the time was spent on the unit coordinating care.
--- NOTE | 2017-09-20 11:54 | HP ---
DATE OF ADMISSION: 09/19/2017 ADMITTING PHYSICIAN: Dr. Luis Izquierdo. HISTORY OF PRESENT ILLNESS: Patient is a 62-year-old male with known history of rheumatoid arthritis , chronic pain syndrome, previous history of CVA, previous history of pulmonary lesion possibly repre sentative of possible pulmonary abscess has been successfully treated. He came to the hospital [facility] due to weakness, history of vomiting associated with some diarrhea. He has had some falls. notes that he just been generally feeling weak over the last 3 to 5 days, this exacerbated with episo hesham of vomiting and diarrhea. There are no blood per bowel movement. He became weak, hypotensive. He was seen and evaluated in the emergency room. He was found to be significantly hypotensive, place d him on IV fluids and Levophed drip, given immediate blood cultures. It has been noted that he has fallen and wound to his right arm. He also has a wound on the right ear, which has some purulent carmen inage. has not noted any productive coughing. Once again, though she does note generalized wea kness. He seems to have more significant difficulty walking on the last several days. No fever has been detected until he spiked out with fever. He had his temperature taken in the ER and he was havi ng a fever of 102. This was treated with p.o. Tylenol. He did seem to respond to fluids resuscitati on as well as Levophed drip. He became more arousable. By the time, I was able to visit with the sita tinsley, he was significantly somnolent. He did arise to painful stimuli and did talk. Otherwise, the re have been no other medical problems noted. As noted, he does have a past medical history of previ ous stroke with previous history of pulmonary abscess that apparently has been successfully treated, previous history of rheumatoid arthritis, previous history of hypertension, chronic pain. He is main tained on multiple antipain medicines. PAST SURGICAL HISTORY: There is no surgical history noted. SOCIAL AND PERSONAL HISTORY: He is disabled secondary to pain. He has quit smoking many years ago. He is . He lives mostly at home. ALLERGIES: Allergic to REGLAN. CURRENT MEDICATIONS: Quinapril/hydrochlorothiazide 20/12.5, bupropion 150 mg daily, Crestor 20 mg da linda, Lyrica 100 mg b.i.d., lansoprazole 30 mg daily, prednisone 5 mg daily, leflunomide 20 mg daily, amlodipine 5 mg daily, vitamin E 1 daily, calcium, folic acid, and clopidogrel 75 mg daily. Addition ally, he is maintained on morphine for chronic pain management. REVIEW OF SYSTEMS: Could not be obtained. PHYSICAL EXAMINATION: VITAL SIGNS: Last BP 107/60, pulse 89, respirations 18, O2 sat 100% on room air. GENERAL: He is alert, active, appears to be sick, pale, not hypoxic, but does appear to be in some m ild distress. HEENT: There is a wound to the right upper auricular area that has purulent drainage is exquisitely tender to touch measures approximately 1 cm in redness, appears to have a small abscess in this area. Otherwise, no other findings were noted by HEENT exam. NECK: Supple, full range of motion, no masses. LUNGS: Reveal bilateral breath sounds. HEART: Reveals a tachycardia without murmur, gallops, or rubs. ABDOMEN: Soft, nontender, bowel sounds are present and active. There is no hepatosplenomegaly noted . No evidence of any rebound or guarding. EXTREMITIES: No clubbing, edema, or cyanosis noted at this time. LABORATORY DATA: His hemoglobin is 8.5, hematocrit 25.5, white blood count is 20,000 with 61 segs, 3 0 bands. Sodium 137, potassium 5.4, chloride 104, CO2 of 10, BUN 37, creatinine 3.68. Lactic acid i s 5.5, bilirubin is 0.2. Urinalysis is clear. Chest x-ray is clear. X-ray of the left elbow does r eveal a possible avulsion fracture. There is an apparent wound as noted by nursing to his right arm. This was not able to be visualized by me as he already has a splint in place. CT scan of the abdom en and pelvis, otherwise normal. IMPRESSION: 1. A 62-year-old male appears to be in septic shock. Etiology of sepsis could be related to possibl e wound to his arms as well as wound to his upper ear. He does have some diarrhea, he could have ekta e infectious source of diarrhea as well, although has been relatively no blood reported from this. 2. History of chronic pain. 3. History of previous stroke. 4. Previous history of pulmonary abscess by chest x-ray this appears to be resolved. PLAN: 1. Patient will be admitted to the ICU, will be continued Levophed drip, titrated per nursing protoc ol. 2. Maintain IV fluids. 3. Maintain Zosyn and vancomycin. 4. Critical Care consult. Dr. Pa will be seeing him in the morning. Dr. Salas his previous lmonologist is not available at this time.
--- NOTE | 2017-09-20 12:09 | PRG ---
DATE OF SERVICE: 09/20/2017 SUBJECTIVE: Mr. Rushing is awake and alert. He is improved from yesterday. He is still complaining of pain. Through the night, he has been weaned off Levophed. He has noted some abdominal discomfort , which he states has been ongoing for approximately 2-3 weeks now. PHYSICAL EXAMINATION: VITAL SIGNS: Blood pressure is 113/64, O2 sat 93% on room air. LUNGS: Clear. HEART: Reveals no murmur. ABDOMEN: Soft, nontender, bowel sounds are present and active. EXTREMITIES: Right arm reveals an avulsion of the skin to the distal elbow. There is some surroundi ng erythema and swelling. LABORATORY DATA: His white blood count is 20.1, hemoglobin 6.7, hematocrit 21.7, sodium 138, potassi um 3.8, chloride 112, CO2 is 12, BUN 38, creatinine is 2.53. Lactic acid is 7.3. IMPRESSION: 1. Sepsis, unknown etiology, sources from the wound to the ear or wound to the elbow. 2. Diarrhea. 3. Anemia. whether he had some type of stress induced gastritis or medication-induced gastrit is, which could cause some abdominal pain and discomfort. PLAN: 1. GI consult. 2. Continue current antibiotics. 3. We will start pantoprazole IV. 4. Physical therapy consult. 5. Consider type and crossing, he may need blood if his hemoglobin drops any further.
--- NOTE | 2017-09-20 21:24 | CON ---
DATE OF CONSULTATION: 09/19/2017 HISTORY OF PRESENT ILLNESS: Patient is a 62-year-old male who was in his normal state of h ealth until yesterday when he developed acute onset diarrhea, reports the diarrhea was loose and wate ry without obvious blood. Over the last 3-4 weeks, he has complained of abdominal pain and has had s ome nausea, not wanting to eat at times. He has been seen by Dr. Daniel in the past and has undergon e colonoscopy in 2014 showing only diverticula, but no other abnormalities. Dr. Daniel' notes also m entioned constipation, gastroparesis, rheumatoid arthritis, chronic narcotic dependence, and reflux. PAST MEDICAL HISTORY: 1. Significant for rheumatoid arthritis. 2. Chronic pain syndrome. 3. History of pulmonary abscess recently treated with antibiotics, gastroesophageal reflux, and amy roparesis. PAST SURGICAL HISTORY: Negative. MEDICATIONS: Include folic acid 0.4 mg p.o. daily, calcium carbonate with vitamin D 1 p.o. daily, tr amadol 300 mg p.o. q.6 hours p.r.n., Crestor 20 mg p.o. at bedtime, prednisone 1 mg p.o. q.i.d., Arav a 20 mg p.o. daily, Norvasc 5 mg p.o. daily, quinapril/hydrochlorothiazide 20/12.5 one p.o. daily, Ly daina 100 mg p.o. b.i.d., Wellbutrin 150 mg p.o. b.i.d., pantoprazole 40 mg p.o. daily, lansoprazole 3 0 mg p.o. daily, Plavix 75 mg p.o. daily. ALLERGIES: Include METOCLOPRAMIDE. SOCIAL HISTORY: Does not smoke or drink. FAMILY HISTORY: Negative for GI or liver disease. REVIEW OF SYSTEMS: Constitutional: No fever or chills, no weight loss. Eyes: No blurred vision or double vision. ENT: No sore throat or earaches. Cardiovascular: No chest pain or palpitation. P ulmonary: Positive for shortness of breath. Positive for dyspnea on exertion. Gastrointestinal: S ee above. : No hematuria or dysuria. Musculoskeletal: Positive for joint pain. Skin: No rashe s. Neurologic: No numbness or seizure activity. PHYSICAL EXAMINATION: GENERAL: Shows a pale white male in no acute distress. VITAL SIGNS: Temperature 98.7, pulse is 84, respiratory rate 20, blood pressure 108/60. HEENT: Shows pale mucous membranes. NECK: Supple. CHEST: Clear. CARDIOVASCULAR: Regular rate and rhythm. ABDOMEN: Soft. Diffusely tender, slightly protuberant, no rebound or guarding. RECTAL: Deferred. EXTREMITIES: Show some mottling, but no other abnormalities. LABORATORY DATA: Shows a normal urinalysis. Chemistry panel significant for potassium of 5.4, BUN 3 7, creatinine 3.68. Total bilirubin less than 0.2. ALT less than 7. Lipase of 4. CBC shows a whit e blood cell count of 20.0, hemoglobin 8.5, hematocrit 25.5, 30% bands. Abdominal and pelvic CT show s no acute abnormalities. ASSESSMENT: 1. Acute-onset diarrhea - Clostridium difficile versus sepsis. 2. Three-week history of abdominal pain, no clear etiology. It may be secondary to patient's gastro paresis and/or gastroesophageal reflux disease. 3. History of gastroparesis. 4. Gastroesophageal reflux disease. 5. Rheumatoid arthritis. 6. Sepsis. 7. Anemia - this may be anemia of chronic disease. No signs of active gastrointestinal bleeding. RECOMMENDATIONS: 1. B.i.d. PPI. 2. Stool studies. 3. Treat underlying sepsis.
[2017-09-21] MEDS: Piperacillin/Tazobactam 4.5 GM in Sodium Chloride 0.9% 100 ML IVPB SCH ×3 (00:57→12:21)
[2017-09-21] MEDS: Sodium Chloride 0.9% 1,000 ML IV SCH ×2 (02:15→08:37)
[2017-09-21] MEDS: HYDROcodone/Acetaminophen 10/325 mg Tablet PO PRN ×4 (02:15→20:53)
[2017-09-21] MEDS ORDERED: Amiodarone HCl 150 MG, Admixture Fee 1 EACH in Dextrose 5% in Water 100 ML IVPB SCH (04:30)
[2017-09-21] MEDS: Amiodarone HCl 450 MG, Admixture Fee 1 EACH in Dextrose 5% in Water 250 ML IVPB SCH ×2 (04:57→12:29)
[2017-09-21 05:25] LABS: ALT (SGPT) 9 U/L (8-55); AST (SGOT) 31 U/L (5-34); Albumin 2.9 g/dL (3.4-4.8); Alkaline Phosphatase 98 U/L (40-150); Anion Gap 12 mmol/L (10-20); BUN (Urea Nitrogen) 19 mg/dL (8.4-25.7); Bilirubin, Total 0.2 mg/dL (0.2-1.2); Calc. Creatinine Clearance 72 mL/min (70-130); Calcium 7.8 mg/dL (7.8-10.44); Carbon Dioxide 16 mmol/L (23-31); Chloride 114 mmol/L (98-107); Estimated GFR-MDRD 71; Globulin 2.5 g/dL (2.4-3.5); Glucose 103 mg/dL (80-115); Potassium 2.8 mmol/L (3.5-5.1); Protein, Total 5.4 g/dL (5.8-8.1); Sodium 139 mmol/L (136-145)
[2017-09-21 05:51] LABS: Mean Corpuscular HGB CONC 33.7 g/dL (32.0-36.0); Mean Corpuscular Hemoglobin 29.3 pg (27.0-31.0); Mean Platelet Volume 8.1 fL (7.4-10.4); Platelet Count 195 thou/uL (130-400); RBC Distribution Width 16.3 % (11.5-14.5); Red Blood Cell (RBC) Count 3.07 mill/uL (4.70-6.10); White Blood Cell (WBC) Count 14.9 thou/uL (4.8-10.8)
[2017-09-21 06:16] LABS: Band 27 % (5-11); Eosinophils 1 % (0-10); Lymphocytes 5 % (21-51); MDiff Complete? YES; Metamyelocyte 1 % (0-0); Monocytes 4 % (0-10); Neutrophil 62 % (42-75); PLT Morphology Comment Appears Adequate
[2017-09-21] MEDS: Potassium Chloride 20 MEQ in Premix Bag 1 BAG IVPB SCH ×2 (07:30→09:47)
[2017-09-21 08:23] LABS: Vancomycin, Random 7.6 ug/mL (See Comment)
[2017-09-21] MEDS: Pantoprazole 40 MG VIAL IVP SCH ×2 (08:38→20:52)
[2017-09-21] MEDS: Vancomycin HCl 1 GM in Premix Bag 1 BAG IVPB SCH (08:38)
[2017-09-21] MEDS ORDERED: Digoxin 0.5 MG/2 ML AMP SLOW IVP SCH (10:45)
[2017-09-21] MEDS: Sodium Chloride 0.45% 1,000 ML IV SCH ×2 (12:22→18:17)
--- NOTE | 2017-09-21 13:48 | PRG ---
DATE OF SERVICE: 09/21/2017 SERVICE: Pulmonary Medicine. INTERVAL HISTORY: The patient is doing outstanding overnight. He denies any current chest pain, marcela sea, vomiting, fevers or chills. He seems to be tolerating a little bit of p.o. He weaned off his L evophed this morning early. His blood pressures have been marginal, but his urine output has been ex cellent. He has some discomfort in his right elbow. Otherwise, he did not have any specific complai nts. PHYSICAL EXAMINATION: VITAL SIGNS: Afebrile currently. T-max yesterday was 99.7, pulse 131, blood pressure 87/67, respira tions 17, saturation 97% on room air. GENERAL: The patient is awake, alert, in no apparent distress. LUNGS: Excellent air entry. There is no prolonged expiratory phase or wheezing present. HEART: Normal rate, regular. ABDOMEN: Soft, nontender, nondistended. Bowel sounds are positive. MUSCULOSKELETAL: No cyanosis or clubbing. There is no pitting in the bilateral lower extremities. His right elbow is hot, red and swollen. I do not appreciate any effusions. He has a little bit of tenderness to passive and active range of motion. LABORATORY DATA: WBC 14.9 and down trending, hemoglobin 9.0, platelets 195,000. Potassium 2.8. Bas ic metabolic profile is otherwise unremarkable. Liver function studies are unremarkable. Creatinine has down trended to 1.05. Urinalysis is unremarkable. C. diff antigen and toxin is negative. Stoo l studies are all unremarkable. Lactoferrin is present; however. Blood cultures x2 and urine cultur e remain negative. ASSESSMENT: 1. Septic shock, resolving. 2. Cellulitis versus septic arthritis of the right elbow. 3. Hypokalemia. 4. Diarrhea, resolving. PLAN: We will continue the empiric vancomycin and Zosyn. I think the most likely source is his righ t elbow. It is not clear to me whether or not the joint itself is involved. There really is not hor rendous tenderness with passive range of motion. That being said, he has an open lesion on the poste rior aspect of the right elbow. This will be sent off for Gram stain and culture. We will replace t he potassium. We will watch him through the day and get him into a chair. If he tolerates this, we will consider transitioning him out of the ICU to the regular medical floor. Pulmonary and Critical Care will continue to follow along.
--- NOTE | 2017-09-21 13:58 | PRG ---
DATE OF SERVICE: 09/21/2017 HISTORY OF PRESENT ILLNESS: The patient is successfully weaned off Levophed in the late morning here . He is maintained on amiodarone drip for SVT or occurring overnight. Heart rate remained in 110s t o 120 this morning. The patient's diarrhea has started to firm up and was noted to be C. diff negati ve. No blood per staff reported. The patient is not having any issues with IV antibiotics for septi c shock. The patient is alert and oriented at bedside, spouse at bedside. All questions were answer ed at the time of exam. The patient with right forearm wound, now covered with Tegaderm some surroun ding erythema and pallor present. No reports of drainage per nursing staff. Patient is able to move right elbow with baseline pain. The patient with polyarthritis with history of gold joint injection s many years ago. No reported recurrence of pulmonary abscess, which had resolved prior to admission . The patient remained stable, has nasal cannula to room air. LABORATORY DATA: White blood cell count of 14.9, hemoglobin with appropriate rise following blood tr ansfusion from 6.7-9.0, platelet count of 195, potassium of 2.8, sodium 139, BUN of 19, creatinine of 1.0. Blood glucose of 103, calcium of 7.8, AST of 31, ALT of 9. Albumin of 2.9. Vancomycin trough at 7.6. C. diff toxin negative. Preliminary urine culture negative at 12 hours. Preliminary blood culture, no growth to date x2. Ear culture, gram positive cocci in pairs. PHYSICAL EXAMINATION: GENERAL: The patient is alert, oriented, no acute distress. VITAL SIGNS: Pulse of 112, blood pressure 106/64, oxygen saturation 98% on room air. HEENT: Normocephalic, atraumatic. Extraocular movements are intact. Right auricular lesion with he me crust with no exudates. No extending erythema, pallor to earlobe of right side. Oral mucosa is m oist. NECK: Supple. HEART: Tachycardic, regular rhythm at time of exam. LUNGS: Clear to auscultation bilaterally. ABDOMEN: Generalized tenderness, without rebound or guarding. Positive bowel sounds. EXTREMITIES: Lower extremities without cyanosis or edema. Positive dorsalis pedis pulses bilaterall y. Patient is alert and oriented x3, no focal deficits. Speech is normal. The right forearm beater operator ior lateral with an approximate 5 x 4 ulceration with extending pallor and erythema, no active acute exudates or areas of fluctuance. Elbow x-ray on 09/19/2017 showed small joint effusion, small density on process of ulna, likely prior avulsion injury per Radiology read, prominent subcutaneous swelling of forearm with a lesion overlyi ng. ASSESSMENT AND PLAN: Sepsis with shock, diarrhea, hypokalemia, right forearm ulceration/cellulitis, anemia of chronic disease, supraventricular tachycardia. The patient improved following a blood cabezas sfusion, maintained on amiodarone drip, continued on vancomycin, Zosyn, potassium being replaced per IV. Diarrhea is fairly self resolving. Clostridium difficile currently negative. Stool culture is pending. Wound care being consulted for right forearm ulceration, which may be a cause of patient's systemic effects, no apparent blood loss at this point in time. Pulmonology, Gastroenterology, Ortho pedic Surgery has seen the patient. Orthopedic Surgery has seen the patient. Orthopedic Surgery has signed off regarding the right elbow, currently subcutaneous infection only. The patient may be balta ropriate if cultures do not show major drug resistant pathogens such as Staphylococcus to transition to better streptococcal coverage, but he has come off Levophed, which is a positive sign. We will co ana to follow while in ICU. ICU time greater than 50% face to face 30 minutes.
--- NOTE | 2017-09-21 15:01 | PRG ---
DATE OF SERVICE: 09/21/2017 SUBJECTIVE: The patient is feeling good. He is ready for solid food. He has had no nausea and vomi ting. He has had one small brown liquid stool yesterday. OBJECTIVE: VITAL SIGNS: Temperature 98.2, pulse 125, respiratory rate 20, and blood pressure 109/71. LABORATORY DATA: Shows a white blood cell count of 14.9, hemoglobin 9.0, hematocrit 26.7. Chemistry shows potassium 2.8, CO2 of 16. ASSESSMENT: 1. Diarrhea - probably secondary to patient's underlying sepsis. 2. Sepsis. 3. Abdominal pain. 4. History of gastroparesis. 5. Gastroesophageal reflux disease. 6. Rheumatoid arthritis. 7. Anemia of chronic disease. RECOMMENDATIONS: 1. B.i.d. PPI. 2. Advance diet to regular. 3. We will follow at a distance.
[2017-09-21] MEDS: Penicillin G Potassium 4 MILL.UNITS in Sodium Chloride 0.9% 100 ML IVPB SCH ×2 (18:01→20:54)
[2017-09-21] MEDS: Clindamycin/D5W 600 MG in Premix Bag 1 BAG IVPB SCH (18:06)
[2017-09-21] MEDS ORDERED: Vancomycin HCl 1 GM in Premix Bag 1 BAG IVPB SCH (21:00)
[2017-09-21] MEDS ORDERED: Clindamycin/D5W 600 MG in Premix Bag 1 BAG IVPB SCH (22:00)
[2017-09-22] MEDS: Penicillin G Potassium 4 MILL.UNITS in Sodium Chloride 0.9% 100 ML IVPB SCH ×6 (01:30→20:16)
[2017-09-22] MEDS: Clindamycin/D5W 600 MG in Premix Bag 1 BAG IVPB SCH ×3 (02:47→20:00)
[2017-09-22] MEDS ORDERED: Adenosine 6 MG/2 ML VIAL ONE (04:01)
[2017-09-22 04:11] LABS: #Basophils 0.1 thou/uL (0.0-0.2); #Eosinphils 0.2 thou/uL (0.0-0.7); #Lymphocytes 1.1 thou/uL (1.20-3.40); #Monocytes 0.7 thou/uL (0.11-0.59); %Basophils 0.5 % (0.0-1.0); %Eosinophils 1.3 % (0.0-10.0); %Monocytes 4.7 % (0.0-10.0); %Neutrophils 85.5 % (42.0-75.0); Hemoglobin 9.4 g/dL (14.0-18.0); Mean Corpuscular HGB CONC 32.9 g/dL (32.0-36.0); Mean Corpuscular Volume 88.3 fL (78.0-98.0); Mean Platelet Volume 8.1 fL (7.4-10.4); Platelet Count 196 thou/uL (130-400); RBC Distribution Width 16.3 % (11.5-14.5); Red Blood Cell (RBC) Count 3.24 mill/uL (4.70-6.10); White Blood Cell (WBC) Count 14.1 thou/uL (4.8-10.8)
[2017-09-22] MEDS ORDERED: Amiodarone HCl 150 MG, Admixture Fee 1 EACH in Dextrose 5% in Water 100 ML IVPB SCH (04:15)
[2017-09-22 04:22] LABS: Anion Gap 10 mmol/L (10-20); BUN (Urea Nitrogen) 8 mg/dL (8.4-25.7); Calc. Creatinine Clearance 102 mL/min (70-130); Calcium 7.9 mg/dL (7.8-10.44); Carbon Dioxide 19 mmol/L (23-31); Chloride 110 mmol/L (98-107); Estimated GFR-MDRD Greater than 90; Glucose 100 mg/dL (80-115); Magnesium 1.2 mg/dL (1.6-2.6); Potassium 3.4 mmol/L (3.5-5.1); Sodium 136 mmol/L (136-145)
[2017-09-22 04:24] LABS: Phosphorus 1.5 mg/dL (2.3-4.7)
[2017-09-22] MEDS ORDERED: Magnesium 2 GM/NS 0.9% 100 ML 2 GM in Premix Bag 1 BAG IVPB SCH ×2 (07:45→09:30)
[2017-09-22] MEDS ORDERED: Potassium Phosphate 15 MMOL in Sodium Chloride 0.9% 250 ML 250 ML IVPB SCH ×2 (08:00→10:00)
[2017-09-22] MEDS: Pantoprazole 40 MG VIAL IVP SCH ×2 (08:26→20:16)
--- NOTE | 2017-09-22 09:16 | PRG ---
DATE OF SERVICE: 09/22/2017 SERVICE: PULMONARY MEDICINE. INTERVAL HISTORY: The patient is doing fine from a respiratory standpoint. He is breathing comforta enedina. The arm is red, hot and swollen, but the redness is actually having a way a little bit. Initia lly, it was growing past the margins, but then this settled down. He continues to have persistent di scomfort in the backside of the elbow, but passive and active range of motion really do not elicit th at discomfort. PHYSICAL EXAMINATION: VITAL SIGNS: Afebrile, pulse 84, blood pressure 131/81, respirations 19, saturation 97% on room air. GENERAL: The patient is awake, alert, no apparent distress. LUNGS: Excellent air entry. There is no prolonged expiratory phase, wheezing, rhonchi or crackles. HEART: Normal rate, regular. ABDOMEN: Soft, nontender and nondistended. Bowel sounds are positive. MUSCULOSKELETAL: No cyanosis or clubbing. The right elbow is hot, red and swollen, still. That autumn carey said, it seems to be moving in the right direction. GENITOURINARY: Mckeon catheter in place. NEUROLOGIC: Grossly nonfocal. LABORATORY DATA: WBC 14.1 and down trending. Hemoglobin 9.4, platelets 196,000 and stable. Neutrop hil count is dropping to 85%. Sodium 136, potassium 3.4, chloride 110, bicarbonate 19 and improving, anion gap 10. Phosphorus and magnesium are both low at 1.5 and 1.2, respectively. ASSESSMENT: 1. Septic shock, resolved. 2. Cellulitis of the bursitis of the right elbow (septic arthritis unlikely). 3. Hypokalemia. 4. Hypophosphatemia. 5. Hypomagnesemia. 6. Atrial fibrillation with rapid ventricular rate. DISCUSSION AND PLAN: The patient is now stable for transition out of the ICU to the floor. Surgery has seen the patient. There are going to watch this lesion. They do not think if there is any intra -articular involvement. An I and D will be considered in 24-48 hours. However, if it appears that t here is a collection of fluid that forms. Potassium, magnesium and phosphorus will be aggressively r eplaced today. We will feed the patient again and make him n.p.o. after midnight. Pulmonary or Crit ical Care will continue to follow along.
[2017-09-22] MEDS: HYDROcodone/Acetaminophen 10/325 mg Tablet PO PRN ×2 (14:14→22:45)
[2017-09-22] MEDS: Amiodarone HCl 450 MG in Dextrose 5% in Water 250 ML IVPB SCH (16:31)
--- NOTE | 2017-09-22 20:12 | PRG ---
DATE OF SERVICE: 09/22/2017 HISTORY OF PRESENT ILLNESS: The patient is still very fatigued and continues to have joint pains, which appear to be his baseline, slightly increased to his right elbow; however, he is still able to move under passive and full active range of motion. The diarrhea has slowed down per nursing staff. No new acute events. The patient remains in intermittent episodes of atrial fibrillation with RVR, maintained, rate controlled by amiodarone drip. Critical care recommending transition to telemetry and now the septic shock has been resolved. PHYSICAL EXAMINATION: VITAL SIGNS: Temperature 99.8, heart rate of 89 on an amiodarone drip. Blood pressure 121/76, oxygen saturation is 95% on room air. LABORATORY DATA: White blood cell count of 14.1, hemoglobin of 9.4, platelet count of 196. Sodium 134, potassium of 3.4, CO2 of 19, creatinine of 0.74, calcium of 7.9, phosphorus of 1.5, magnesium 1.2, AST of 31, ALT 9, total albumin 2.9. PHYSICAL EXAMINATION: GENERAL: The patient is alert and oriented, no acute distress. HEENT: Head is normocephalic, atraumatic. Right ear with heme-crust lesion without extension of pallor, erythema along the ear. Oral mucosa is moist. NECK: Supple. HEART: Regular rate. No discernible irregularity on exam without telemetry strip or EKG. LUNGS: Moderate air movement. No rhonchi or wheezes auscultated. ABDOMEN: Protuberant, soft, nontender. Positive bowel sounds throughout. LOWER EXTREMITIES: Cold. Positive dorsalis pedis pulses bilaterally. The patient does have ulcer on him in right elbow without any significant changes in extension of erythema and pallor over ulcerating forearm wound posterolaterally. The patient is still able to passively and actively move it on exam. ASSESSMENT AND PLAN: Septic shock, resolved. Current growth, Strep pyogenes, right forearm cellulitis and wound, hypomagnesemia, hypokalemia, hypophosphatemia, atrial fibrillation, supraventricular tachycardia. Agree with move to the floor and modulated antibiotics given cultures negative for MDR microbial organisms to penicillin and clindamycin. We will continue to follow along laboratory work with Critical Care. We will follow to the floor. Consideration for potential incision and drainage for right forearm to speed any recovery efforts. The patient will be made n.p.o. at midnight per recommendations of Dr. Puentes; however, he would be allowed to eat in the interim following electrolyte replacement today. Cardiology will be consulted for continuation of rhythm control and transition off amiodarone drip regarding his heart rate. ICU time 30min MTDD
[2017-09-22] MEDS ORDERED: Potassium Chloride 20 MEQ TAB PO SCH (21:30)
--- NOTE | 2017-09-23 00:30 | CON ---
DATE OF CONSULTATION: 09/22/2017 PRIMARY UNLOAD ASSOCIATE: Dr. Chris Sheridan. REASON FOR CONSULTATION: Supraventricular tachycardia. HISTORY OF PRESENT ILLNESS: Mr. Jiménez is a very pleasant 62-year-old gentleman. The patient has se geovanna cellulitis of the right arm and will likely need surgical debridement. He has had supraventricu lar tachycardia here which has responded to amiodarone. The patient was admitted on 09/19/2017. The patient is not having chest pain or pressure, but did have very rapid tachycardia as mentioned brantley s responded to amiodarone. Patient also has a history of pulmonary abscess. CURRENT MEDICATIONS: He is on intravenous amiodarone. At home, he was on clopidogrel and quinapril HCT. ALLERGIES: METOCLOPRAMIDE. REVIEW OF SYSTEMS: Constitutional: No significant weight gain or loss. Vision: No changes. Heari ng: No changes. Pulmonary: No cough or wheezing. Gastrointestinal: No nausea, vomiting, diarrhea . Skin: No rashes. Neurologic: No unilateral weakness or numbness. Psychiatric: No unusual depr ession or anxiety. Hematologic: No unusual bruising. Genitourinary: No burning with urination. PHYSICAL EXAMINATION: GENERAL: This is a pleasant 62-year-old gentleman resting comfortably. VITAL SIGNS: Blood pressure 127/78, pulse is now 70-80, sinus. HEENT: Eyes, sclerae nonicteric. Mouth, mucous membranes moist. NECK: Supple, no lymphadenopathy. LUNGS: Clear, no wheezing, rales or rhonchi. CARDIAC: Normal S1, normal S2. There is no murmur, rub or gallop. ABDOMEN: Soft, nontender. EXTREMITIES: No clubbing, no cyanosis or edema. SKIN: Warm and dry. PERTINENT LABORATORY AND X-RAY FINDINGS: The EKG showed supraventricular tachycardia, narrow complex , now he is in sinus rhythm. ASSESSMENT: 1. Supraventricular tachycardia, controlled with the amiodarone. The previous supraventricular tach ycardia is regular at times. Some of it could be AV onofre reentry, but some of it is likely atrial f ibrillation with a very rapid rate. 2. Septic shock, resolved. 3. Cellulitis and bursitis, right elbow, will likely need surgical debridement. PLAN: Continue intravenous amiodarone for now. Dr. Sheridan will check the patient tomorrow.
[2017-09-23] MEDS: Penicillin G Potassium 4 MILL.UNITS in Sodium Chloride 0.9% 100 ML IVPB SCH ×6 (01:37→20:46)
[2017-09-23] MEDS: Sodium Chloride 0.45% 1,000 ML IV SCH ×3 (01:37→12:26)
[2017-09-23] MEDS: Clindamycin/D5W 600 MG in Premix Bag 1 BAG IVPB SCH ×3 (01:38→17:06)
[2017-09-23 04:58] LABS: Anion Gap 11 mmol/L (10-20); BUN (Urea Nitrogen) 4 mg/dL (8.4-25.7); Calc. Creatinine Clearance 118 mL/min (70-130); Carbon Dioxide 20 mmol/L (23-31); Chloride 109 mmol/L (98-107); Estimated GFR-MDRD Greater than 90; Glucose 94 mg/dL (80-115); Magnesium 1.4 mg/dL (1.6-2.6); Phosphorus 2.1 mg/dL (2.3-4.7); Potassium 3.7 mmol/L (3.5-5.1); Sodium 136 mmol/L (136-145)
[2017-09-23 05:13] LABS: Band 21 % (5-11); Eosinophils 2 % (0-10); Lymphocytes 7 % (21-51); MDiff Complete? YES; Mean Corpuscular HGB CONC 33.5 g/dL (32.0-36.0); Mean Corpuscular Hemoglobin 29.7 pg (27.0-31.0); Mean Corpuscular Volume 88.7 fL (78.0-98.0); Mean Platelet Volume 8.5 fL (7.4-10.4); Monocytes 6 % (0-10); Neutrophil 64 % (42-75); Platelet Count 187 thou/uL (130-400); RBC Distribution Width 16.3 % (11.5-14.5); Red Blood Cell (RBC) Count 3.02 mill/uL (4.70-6.10)
[2017-09-23] MEDS: Pantoprazole 40 MG VIAL IVP SCH ×2 (08:55→20:46)
[2017-09-23] MEDS: HYDROcodone/Acetaminophen 10/325 mg Tablet PO PRN ×2 (09:12→17:07)
[2017-09-23] MEDS: Loperamide HCl 2 MG CAP PO PRN ×2 (09:16→15:51)
[2017-09-23] MEDS: Amiodarone HCl 450 MG in Dextrose 5% in Water 250 ML IVPB SCH ×2 (09:16→23:37)
[2017-09-23] MEDS ORDERED: Potassium Phosphate 30 MMOL in Sodium Chloride 0.9% 500 ML IVPB SCH (14:15)
[2017-09-23] MEDS ORDERED: Magnesium 2 GM/NS 0.9% 100 ML 2 GM in Premix Bag 1 BAG IVPB SCH (14:15)
[2017-09-23] MEDS ORDERED: Magnesium Sulfate 2 GM, Admixture Fee 1 EACH in Sodium Chloride 0.9% 100 ML IVPB SCH (14:45)
--- NOTE | 2017-09-23 17:48 | PRG ---
DATE OF SERVICE: 09/23/2017 SUBJECTIVE: Mr. Jiménez is currently in sinus rhythm. He has no current complaints. He has had 2 ep isodes of atrial fibrillation that has been controlled with IV amiodarone therapy. OBJECTIVE: VITAL SIGNS: Blood pressure 149/85, pulse 75, temperature afebrile. LUNGS: Clear to auscultation. CARDIAC: Regular rate and rhythm. ABDOMEN: Soft, nontender, nondistended. EXTREMITIES: No edema. IMPRESSION: 1. Sepsis. 2. Volume contraction. 3. Atrial fibrillation. RECOMMENDATIONS: 1. Continue IV amiodarone. 2. Check echo to assess LV function. 3. Likely discontinue amiodarone therapy tomorrow and reassess rhythm. There may be episodes of SVT , but most likely appears to be associated with the atrial fibrillation.
--- NOTE | 2017-09-23 18:09 | PRG ---
DATE OF SERVICE: 09/23/2017 SUBJECTIVE: Mr. Jiménez says he feels a little better. His elbow feels a little better. OBJECTIVE: VITAL SIGNS: He is afebrile, heart rate is 87, respiratory rate 18, oximetry is 94% on room air, blo od pressure 149/85. LUNGS: Clear. HEART: Regular rhythm. ABDOMEN: Soft and nontender. EXTREMITIES: Without asymmetry. The erythema around his right elbow appears to be unchanged based o n the markings. IMPRESSION: 1. Clinical sepsis with intravascular volume depletion. He is still having loose bowel movements an d had a big one today when physical therapy was in the room. 2. Streptococcus pyogenes bacteremia. 3. Electrolyte imbalance. 4. Supraventricular tachycardia, controlled. 5. Rheumatoid arthritis. 6. Recent lung abscess. 7. History of hepatitis. PLAN: Continue supportive care with antimicrobial therapy. Continue to follow his elbow exam. His p.o. intake was poor today, so his is bringing him some food from [employer].
--- NOTE | 2017-09-23 18:41 | PRG ---
DATE OF SERVICE: 09/23/2017 SUBJECTIVE: Mr. Jiménez is doing well. He is awake and alert. He is now in the ICU up on the floor. He is currently maintained on IV clindamycin as well as IV penicillin. Wound cultures showing Stre ptococcus pyogenes. He is still having wound to his left elbow. OBJECTIVE: VITAL SIGNS: Temperature 98.4, pulse 87 and regular, BP 130/77. GENERAL: Alert, active, in no distress. LUNGS: Clear. HEART: Reveals no murmur, regular rate and rhythm. ABDOMEN: Soft. LABORATORY DATA: Hemoglobin is 9.0, hematocrit 26.8. WBCs are 10.0. Sodium 136, potassium 3.7, chl oride 109, CO2 of 20, BUN 4, creatinine 0.64. IMPRESSION: 1. Septic shock, resolved. 2. Cellulitis of the right arm and right ear. 3. History of atrial fibrillation on amiodarone. PLAN: Continue current treatments, possibly possible for discharge later this week.
[2017-09-24] MEDS: Penicillin G Potassium 4 MILL.UNITS in Sodium Chloride 0.9% 100 ML IVPB SCH ×6 (01:17→21:10)
[2017-09-24] MEDS: Clindamycin/D5W 600 MG in Premix Bag 1 BAG IVPB SCH ×3 (01:17→17:37)
[2017-09-24] MEDS: Sodium Chloride 0.45% 1,000 ML IV SCH ×2 (03:30→15:15)
[2017-09-24 05:20] LABS: Anion Gap 13 mmol/L (10-20); BUN (Urea Nitrogen) Less than 4 mg/dL (8.4-25.7); Calc. Creatinine Clearance 131 mL/min (70-130); Calcium 8.1 mg/dL (7.8-10.44); Carbon Dioxide 21 mmol/L (23-31); Chloride 104 mmol/L (98-107); Estimated GFR-MDRD Greater than 90; Glucose 91 mg/dL (80-115); Magnesium 1.3 mg/dL (1.6-2.6); Phosphorus 2.9 mg/dL (2.3-4.7); Potassium 3.4 mmol/L (3.5-5.1); Sodium 135 mmol/L (136-145)
[2017-09-24 06:58] LABS: Band 16 % (5-11); Eosinophils 2 % (0-10); Hemoglobin 9.4 g/dL (14.0-18.0); Lymphocytes 11 % (21-51); MDiff Complete? YES; Mean Corpuscular HGB CONC 32.6 g/dL (32.0-36.0); Mean Corpuscular Hemoglobin 28.8 pg (27.0-31.0); Mean Corpuscular Volume 88.4 fL (78.0-98.0); Mean Platelet Volume 8.1 fL (7.4-10.4); Monocytes 3 % (0-10); Neutrophil 68 % (42-75); Platelet Count 182 thou/uL (130-400); RBC Distribution Width 16.3 % (11.5-14.5); Red Blood Cell (RBC) Count 3.27 mill/uL (4.70-6.10); White Blood Cell (WBC) Count 8.6 thou/uL (4.8-10.8)
--- NOTE | 2017-09-24 08:23 | PRG ---
DATE OF SERVICE: 09/23/2017 SUBJECTIVE: Mr. Jiménez has had no diarrhea today. He notes that he feels better overall, but still has not much appetite. He did have abdominal pain yesterday, but that is better today. He is gettin g ready to get up with physical therapy. OBJECTIVE: VITAL SIGNS: Temperature is 98.8, pulse 77, respirations 18, blood pressure 130/77. GENERAL: The patient is frail. SKIN: He has, however, some erythema of right elbow, although the extent of this is decreased based on the lines, ink garcia on the skin, dark, demarcated original extent. MUSCULOSKELETAL: There is some muscle wasting. ABDOMEN: Soft and nontender, without rebound or guarding. LABORATORY STUDIES: White count is down to 10, was 20,000 on admission; hemoglobin was 9; platelet c ount 187. Sodium 136, potassium 3.7, BUN and creatinine are 4 and 0.67, phosphorus 2.1, magnesium 1. 4. ASSESSMENT: 1. Diarrhea, likely due to the patient's sepsis. Stool cultures were all negative. 2. Cellulitis, likely source is sepsis. He actually grew out streptococcus positives in the blood. 3. Low magnesium and phosphorus. PLAN: I will check with the nurse to make sure these have been replaced today, and if not, we are go ing to do that now.
[2017-09-24] MEDS: Bupropion 150 MG SR TAB PO SCH ×2 (08:35→21:09)
[2017-09-24] MEDS: HYDROcodone/Acetaminophen 10/325 mg Tablet PO PRN ×2 (08:35→17:47)
[2017-09-24] MEDS: Loperamide HCl 2 MG CAP PO PRN (08:35)
[2017-09-24] MEDS: Amlodipine 5 MG TAB PO SCH (08:36)
[2017-09-24] MEDS: Pantoprazole 40 MG VIAL IVP SCH (08:36)
[2017-09-24] MEDS: Potassium Chloride 10 MEQ TAB PO SCH (08:36)
--- NOTE | 2017-09-24 08:43 | PDOC.CTH ---
Cardiology Progress Note - Subjective No complaints today. Pt scheduled for washout - Objective Vital Signs Temp Pulse Resp BP Pulse Ox 09/24/17 07:36 94 L 09/24/17 05:20 98.2 F 73 18 156/85 H 94 L Admit Weight 156 lb Weight 156 lb 4.924 oz 09/23/17 09/24/17 09/25/17 06:59 06:59 06:59 Intake Total 1594 800 Output Total 840 1900 Balance 754 -1100 - Physical Examination General/Neuro: alert & oriented x3, NAD Neck: carotid US brisk, no JVD present Lungs: CTA, unlabored respirations Heart: RRR Abdomen: NT/ND, soft Extremities: + edema B - Labs Result Diagrams: 09/24/17 04:10 09/24/17 04:10 - Assessment/Plan 1. afib-resolved. DC IV amiodarone and continue tele. Add BB 2. Sepsis-on Abx 3. CEllulitis-scheudled for washout today
[2017-09-24] MEDS: Metoprolol Tartrate 25 MG TAB PO SCH ×2 (10:11→21:10)
--- NOTE | 2017-09-24 11:57 | PRG ---
DATE OF SERVICE: 09/24/2017 SUBJECTIVE: Mr. Jiménez is awake and alert, lying in his bed. He states he is not drinking enough ve ry much. He is still having some diarrhea. He verbalizes no complaints. PHYSICAL EXAMINATION: VITAL SIGNS: Temperature 98.2, BP 156/85, O2 sats 94%. LUNGS: Clear. HEART: Reveals no murmur, regular rate and rhythm. ABDOMEN: Soft, bowel sounds present and active. SKIN: Right elbow does still show some redness extending past the dressing site. The right ear is c lear. LABORATORY DATA: His hemoglobin is 9.4, hematocrit 28.9, WBC is 8.6. Sodium 135, potassium 3.4, CO2 of 21, BUN 4, creatinine 0.58. IMPRESSION: 1. Septic shock with infected wound of the right elbow and right ear. 2. History of chronic pain. 3. Hypertension. 4. Previous stroke. 5. Atrial fibrillation. PLAN: I will begin to start him back on some of his oral medications for hypertensive control. We w ill add oral potassium today. We discussed with Dr. Sheridan possibility of him being on anticoagul ation once the definitive procedure is done for his elbow.
--- NOTE | 2017-09-24 18:19 | PRG ---
DATE OF SERVICE: 09/24/2017 SUBJECTIVE: Avni Jiménez says he feels a little better. He walked with a walker yesterday to the omt and back to his bed. He has been out of bed today. PHYSICAL EXAMINATION: VITAL SIGNS: He is afebrile, heart rate 78, respiratory rate 16, oximetry is 94% on room air, blood pressure 154/84. LUNGS: Clear. HEART: Regular rhythm. ABDOMEN: Soft. He is still on amiodarone. IMPRESSION: 1. Atrial fibrillation, resolved. 2. Hypotension. 3. Status post fall with cellulitis involving his right elbow . 4. History of chronic pain. 5. History of hypertension. 6. History of cerebrovascular accident. PLAN: Continue care of his elbow. Continue to follow care for him. He is medically stable.
[2017-09-24] MEDS: Rosuvastatin 20 MG TAB PO SCH (21:10)
[2017-09-25] MEDS: Clindamycin/D5W 600 MG in Premix Bag 1 BAG IVPB SCH ×3 (02:00→17:23)
[2017-09-25] MEDS: Penicillin G Potassium 4 MILL.UNITS in Sodium Chloride 0.9% 100 ML IVPB SCH ×6 (02:00→20:57)
[2017-09-25 05:36] LABS: Anion Gap 13 mmol/L (10-20); BUN (Urea Nitrogen) 5 mg/dL (8.4-25.7); Calc. Creatinine Clearance 124 mL/min (70-130); Calcium 8.3 mg/dL (7.8-10.44); Carbon Dioxide 24 mmol/L (23-31); Chloride 100 mmol/L (98-107); Estimated GFR-MDRD Greater than 90; Glucose 89 mg/dL (80-115); Phosphorus 3.2 mg/dL (2.3-4.7); Potassium 3.4 mmol/L (3.5-5.1); Sodium 134 mmol/L (136-145)
[2017-09-25 06:21] LABS: Band 15 % (5-11); Eosinophils 1 % (0-10); Hemoglobin 9.5 g/dL (14.0-18.0); Lymphocytes 17 % (21-51); MDiff Complete? YES; Mean Corpuscular HGB CONC 31.9 g/dL (32.0-36.0); Mean Corpuscular Hemoglobin 28.1 pg (27.0-31.0); Mean Corpuscular Volume 88.1 fL (78.0-98.0); Mean Platelet Volume 8.3 fL (7.4-10.4); Monocytes 8 % (0-10); Myelocyte 1 % (0-0); Neutrophil 58 % (42-75); Platelet Count 200 thou/uL (130-400); RBC Distribution Width 16.2 % (11.5-14.5); Red Blood Cell (RBC) Count 3.36 mill/uL (4.70-6.10); White Blood Cell (WBC) Count 7.1 thou/uL (4.8-10.8)
--- NOTE | 2017-09-25 07:27 | PDOC.CTH ---
Cardiology Progress Note - Subjective No complaints today - Objective Vital Signs Temp Pulse Resp BP Pulse Ox 09/25/17 05:14 98.6 F 74 16 139/81 92 L Admit Weight 156 lb 4.924 oz Weight 156 lb 4.924 oz 09/24/17 09/25/17 09/26/17 06:59 06:59 06:59 Intake Total 800 2088 Output Total 1900 2300 Balance -1100 -212 - Physical Examination General/Neuro: alert & oriented x3, NAD Neck: carotid US brisk, no JVD present Lungs: CTA, unlabored respirations Heart: RRR Abdomen: NT/ND, soft Extremities: + femoral B - Labs Result Diagrams: 09/25/17 04:56 09/25/17 04:56 - Assessment/Plan 1. afib 2. Sepsis 3. CEllulitis Discussed with Dr. Izquierdo. Pt with previous CVA and afib recently although transient. Unsure if afib secondary to recent hypotension and sepsis or truly PAF. Recommend ACT for now after discussing with pt. He states he has fallen twice in last yr. Rec. fu with pt on op basis with 3 week event recorder. R/B of NOAC discussed with pt
[2017-09-25] MEDS: HYDROcodone/Acetaminophen 10/325 mg Tablet PO PRN (08:58)
[2017-09-25] MEDS: Amlodipine 5 MG TAB PO SCH (08:59)
[2017-09-25] MEDS: Bupropion 150 MG SR TAB PO SCH ×2 (08:59→20:25)
[2017-09-25] MEDS: Calcium Carbonate + Vit D 1 TAB PO SCH (09:00)
[2017-09-25] MEDS: Metoprolol Tartrate 25 MG TAB PO SCH ×2 (09:00→20:24)
[2017-09-25] MEDS: Potassium Chloride 10 MEQ TAB PO SCH (09:00)
[2017-09-25] MEDS: Folic Acid 1 MG TAB PO SCH (09:00)
--- NOTE | 2017-09-25 17:33 | PRG ---
DATE OF SERVICE: 09/25/2017 HISTORY OF PRESENT ILLNESS: The patient states he had a bowel movement yesterday. He is urinating w ith a Mckeon catheter, does desire to have it out; however, verbalized understanding possible right el bow washout with incision and drainage with big surgery tomorrow. The patient tolerated IV antibioti cs well, has transitioned to the floor well, has no acute complaints. Does report he would rather go home with home health than inpatient rehabilitation only worked 90 feet with last stent with [employer]. OBJECTIVE: VITAL SIGNS: Temperature of 98.4, respiratory rate of 67. Oxygen saturation of 90% on room air, res piratory rate of 16, blood pressure is 126/69. GENERAL: The patient is alert and oriented, no acute distress. HEENT: Normocephalic, atraumatic. Extraocular movements are intact. Sclerae are clear. Oral mucos a is moist. NECK: Supple, nontender. HEART: Regular rate and rhythm. No murmurs auscultated. LUNGS: Clear to auscultation bilaterally. No rubs or wheezes. ABDOMEN: Somewhat diffusely tender without rebound or guarding. EXTREMITIES: Lower extremities without cyanosis or edema. Right elbow with significantly improved e rythema and pallor compared to this weekend. Still has a large ulceration which has apparent wet to dry dressing intact otherwise. NEUROLOGIC: The patient is alert and oriented x3, no focal deficits. Speech is normal. LABORATORY DATA: Hemoglobin is 9.5, white blood cell count 7.1, platelet count at 200. Sodium of 13 4, potassium of 3.4, creatinine of 0.6. Microbiology does show strep pyogenes on both ear and elbow wound. Staph aureus which is sensitive to clindamycin is in the right elbow. ASSESSMENT AND PLAN: Septic shock is resolved currently with cellulitis of right forearm with possib le abscess pocket. Paroxysmal atrial fibrillation is currently in sinus rhythm, the rate controlled. Cardiology states that they would like to perform an event monitor on outpatient basis. No anticoa gulation needed at this point in time given he is in normal sinus rhythm. The patient is to continue current Norvasc at this point in time. The patient continued on clindamycin and penicillin G for luna sceptibilities regarding Staph aureus and strep pyogenes. We will follow up Surgery's recommendation s for tomorrow for possible washout of the elbow. He was made n.p.o. at midnight. We will discuss r kiara Mckeon, surgery is not an occurrence tomorrow and continue to walk patient. The patient is a candidate for inpatient rehabilitation; however, does not wish to go there. Discussed with patient demario reza that he may need to go to inpatient rehab if he does not make significant gains in order to be safe to go home. He verbalized understanding, still desires to go home is major decision. We dagoberto dorantes continue to follow with daily PT progress.
[2017-09-25] MEDS ORDERED: Magnesium Sulfate 3 GM in Sodium Chloride 0.9% 100 ML IVPB SCH (18:00)
[2017-09-25] MEDS: Rosuvastatin 20 MG TAB PO SCH (20:25)
--- NOTE | 2017-09-26 00:20 | PRG ---
DATE OF SERVICE: 09/25/2017 SUBJECTIVE: Mr. Jiménez is ____ appetite. He is having no diarrhea. OBJECTIVE: Temperature is 98, pulse 85, blood pressure is 118/72. He has bandage on the right elbow . LABORATORY STUDIES: White count 7.1, hemoglobin 9.5, platelet count 200. Chemistries: Magnesium wa s 1, phosphorous 3.2, sodium 134, potassium 3.4, BUN and creatinine are 5 and 0.6. ASSESSMENT: 1. Cellulitis. The patient is going for debridement tomorrow. 2. Hypomagnesemia. 3. Diarrhea, resolved. 4. Broad spectrum antibiotics. RECOMMENDATIONS: 1. Probiotics to help reduce risk of C. diff. We will start these tomorrow. 2. We will replace magnesium which was one with 3 grams of magnesium sulfate IV. We will sign off a t this time as there are no acute GI issues ongoing. Thank you for ____ patient's evaluation. Please do not hesitate to contact me for any further assist ance in this patient's care.
[2017-09-26] MEDS: Penicillin G Potassium 4 MILL.UNITS in Sodium Chloride 0.9% 100 ML IVPB SCH ×5 (01:02→18:11)
[2017-09-26] MEDS: Clindamycin/D5W 600 MG in Premix Bag 1 BAG IVPB SCH ×3 (02:26→19:47)
[2017-09-26] MEDS: HYDROcodone/Acetaminophen 10/325 mg Tablet PO PRN ×2 (02:27→18:58)
[2017-09-26 05:39] LABS: #Eosinphils 0.3 thou/uL (0.0-0.7); #Monocytes 0.6 thou/uL (0.11-0.59); #Neutrophils 3.8 thou/uL (1.40-6.50); %Basophils 0.9 % (0.0-1.0); %Lymphocytes 17.3 % (21.0-51.0); %Neutrophils 65.9 % (42.0-75.0); Hemoglobin 9.7 g/dL (14.0-18.0); Mean Corpuscular HGB CONC 32.6 g/dL (32.0-36.0); Mean Corpuscular Hemoglobin 28.9 pg (27.0-31.0); Mean Corpuscular Volume 88.6 fL (78.0-98.0); Mean Platelet Volume 8.2 fL (7.4-10.4); Platelet Count 228 thou/uL (130-400); Red Blood Cell (RBC) Count 3.37 mill/uL (4.70-6.10); White Blood Cell (WBC) Count 5.7 thou/uL (4.8-10.8)
[2017-09-26] MEDS: Amlodipine 5 MG TAB PO SCH (05:51)
[2017-09-26] MEDS: Metoprolol Tartrate 25 MG TAB PO SCH ×2 (05:51→21:14)
[2017-09-26] MEDS: Potassium Chloride 10 MEQ TAB PO SCH (05:51)
[2017-09-26] MEDS: Bupropion 150 MG SR TAB PO SCH ×2 (05:51→21:10)
[2017-09-26 05:57] LABS: Anion Gap 15 mmol/L (10-20); BUN (Urea Nitrogen) 4 mg/dL (8.4-25.7); Calc. Creatinine Clearance 122 mL/min (70-130); Calcium 8.4 mg/dL (7.8-10.44); Carbon Dioxide 24 mmol/L (23-31); Chloride 100 mmol/L (98-107); Estimated GFR-MDRD Greater than 90; Glucose 75 mg/dL (80-115); Magnesium 1.3 mg/dL (1.6-2.6); Phosphorus 3.7 mg/dL (2.3-4.7); Potassium 3.6 mmol/L (3.5-5.1); Sodium 135 mmol/L (136-145)
--- NOTE | 2017-09-26 06:47 | PDOC.CTH ---
Cardiology Progress Note - Subjective NO complaints - Objective Vital Signs Temp Pulse Resp BP Pulse Ox 09/26/17 05:51 76 09/26/17 03:25 97.9 F 76 16 127/73 94 L 09/25/17 20:30 98.3 F 85 16 89 L Admit Weight 156 lb 4.924 oz Weight 171 lb 3.2 oz 09/24/17 09/25/17 09/26/17 06:59 06:59 06:59 Intake Total 800 2088 2260 Output Total 1900 2300 3225 Balance -1100 -212 -965 - Physical Examination General/Neuro: alert & oriented x3, NAD Neck: carotid US brisk, no JVD present Lungs: CTA, unlabored respirations Heart: RRR Abdomen: no HSM, NT/ND, soft Extremities: + femoral B - Labs Result Diagrams: 09/26/17 05:04 09/26/17 05:04 - Assessment/Plan 1. afib 2. Sepsis 3. CEllulitis Add lovenox 1mg/kg sq BID Add eliquis on dc home Continue BB 3 week EVR as outpatient Transfer to surgical (SR for three days) Abx
[2017-09-26] MEDS: Folic Acid 1 MG TAB PO SCH (10:08)
[2017-09-26] MEDS: Calcium Carbonate + Vit D 1 TAB PO SCH (10:08)
[2017-09-26] MEDS: Floranex Packet PO SCH (10:08)
[2017-09-26] MEDS ORDERED: Magnesium Sulfate 2 GM in Sodium Chloride 0.9% 100 ML IVPB SCH (10:30)
[2017-09-26] MEDS ORDERED: PROPOFOL 200 MG/20 ML VIAL ONE (14:05)
[2017-09-26] MEDS ORDERED: PHENYLEPHRINE-NS 100 MCG/ML 10 ML SYRINGE ONE (14:05)
[2017-09-26] MEDS ORDERED: Ondansetron HCl/PF 4 MG/2 ML Vial ONE (14:05)
[2017-09-26] MEDS ORDERED: Fentanyl 100 MCG/2 ML VIAL ONE ×3 (14:10→16:32)
[2017-09-26] MEDS ORDERED: Neomycin-Polymyxin 1 ML AMP ONE (14:13)
[2017-09-26] MEDS ORDERED: Morphine 10 MG/ML VIAL ONE (15:22)
[2017-09-26] MEDS ORDERED: HYDROmorphone 0.5 MG/0.5 ML SYRINGE ONE (15:23)
[2017-09-26] MEDS ORDERED: Ondansetron HCl/PF 4 MG/2 ML Vial IVP PRN (16:00)
[2017-09-26] MEDS ORDERED: Promethazine HCl 25 MG/ML VIAL SLOW IVP PRN (16:00)
[2017-09-26] MEDS ORDERED: Meperidine HCl/PF 25 MG/ML VIAL SLOW IVP PRN (16:00)
[2017-09-26] MEDS ORDERED: Promethazine HCl 25 MG/ML VIAL IM PRN (16:00)
--- NOTE | 2017-09-26 19:46 | OP ---
DATE OF OPERATION: 09/26/2017 OPERATION: Irrigation and debridement of right posterior elbow with eschar removal. PREOPERATIVE DIAGNOSIS: Right septic elbow bursitis with infection and necrotic tissue. POSTOPERATIVE DIAGNOSIS: Right septic elbow bursitis with infection and necrotic tissue. COMPLICATIONS: None. ESTIMATED BLOOD LOSS: Minimal. SURGEON: Khari Hebert M.D. ANESTHESIA: General. CUSTOMER TRAINER: Patricia Leblanc PA-C IMPLANTS: None. INDICATIONS FOR PROCEDURE: Mr. Jiménez is a 62-year-old male who has developed a septic bursitis of h is right elbow. He has been treated with intravenous antibiotics for multiple days, but has failed t o fully improve. He developed an eschar over the posterior elbow with necrotic tissue. He was indic ated for eschar removal, debridement of the tissues and to eradicate infection. Risks have been revi ewed. DESCRIPTION OF PROCEDURE: Mr. Jiménez was identified in the preoperative holding area. His correct e xtremity was marked. He was carried to the operating room. He was positioned supine. General anest hesia was induced. A multidisciplinary timeout was performed. The right upper extremity was prepped and draped in sterile fashion. We began the procedure with excision sharply of the eschar. A 10-blade knife was used to excise the tissue down to bleeding healthy surface of tissue. The skin edges were trimmed appropriately. We th en used a curet and rongeur to debride the underlying tissue. There was some purulent material. Thi s was cultured. After sharp debridement, we thoroughly irrigated with copious lavage. There was no deep extension into the bone or deep tissue including the joint. Again, we thoroughly irrigated. We then applied a damp to dry dressing. The patient was taken to the recovery room in good condition w ithout complication.
[2017-09-26] MEDS: Clindamycin 150 MG CAP PO SCH (21:09)
[2017-09-26] MEDS: Rosuvastatin 20 MG TAB PO SCH (21:10)
[2017-09-26] MEDS: Penicillin V Potassium 250 MG TAB PO SCH (21:11)
[2017-09-26] MEDS: Enoxaparin Sodium 80 MG/0.8 ML SYRINGE SC SCH (21:12)
--- NOTE | 2017-09-26 21:29 | PRG ---
DATE OF SERVICE: 09/26/2017 HISTORY OF PRESENT ILLNESS: Patient continues to have improving range of motion and decreased swelli ng in right forearm; however, washout I&D is scheduled for 2 p.m. this afternoon. Patient continues to refuse to consider inpatient rehabilitation but did improve his gait distance to 200 feet today. Patient still wants to go home with home health was support with his spouse. Cardiology has followed up on telemetry strips and is recommending anticoagulation with Lovenox following surgery and transi tioned to [facility] on an outpatient basis with followup of 3-week event monitor. Patient has no curre nt chest pain, palpitations. Temperature of 98.2, pulse of 74, respiratory rate of 16, oxygen satura tion of 93% on room air, blood pressure 132/80. LABORATORY WORK: Preoperatively white blood cell count of 5.7, hemoglobin of 9.7, platelet count of 228. Sodium of 135, potassium of 3.6, creatinine of 0.62. OBJECTIVE: GENERAL: Patient is alert and oriented, in no acute distress. HEENT: Head is normocephalic, atraumatic. Extraocular movements are intact. Healing right ear, hem e crust lesions. No extending erythema. Oral mucosa is moist. NECK: Supple. HEART: Regular rate and rhythm at time of the exam. No murmurs auscultated. LUNGS: Clear to auscultation bilaterally. No rubs or wheezes. Right forearm is with a dressing int act, gauze bandage. No extending erythema or pallor. Right elbow with good range of motion, active and passive. ABDOMEN: Protuberant, soft, nontender. Positive bowel sounds throughout. EXTREMITIES: Lower extremities without cyanosis or edema. NEUROLOGIC: Patient is alert and oriented x3, no focal deficits. Speech is normal. ASSESSMENT AND PLAN: Current cellulitis of right forearm, resolved sepsis, atrial fibrillation. Zara ient currently continued on clindamycin and penicillin G for Strep pyogenes and Staph aureus sensitiv e to clindamycin. These likely can be transitioned to oral. Cardiology recommending anticoagulation as above. Patient currently getting washed out for ulceration and cellulitis of right forearm. Zara ient is currently ambulating well. He will likely ambulate greater than 300 feet probably prior to d ischarge. Once Cardiology and Surgery has cleared, he will be likely transitioned to home with home health potentially over the weekend or early next week.
[2017-09-27] MEDS: HYDROcodone/Acetaminophen 10/325 mg Tablet PO PRN ×4 (01:17→20:51)
[2017-09-27] MEDS: Clindamycin 150 MG CAP PO SCH ×3 (04:01→20:49)
--- NOTE | 2017-09-27 05:58 | PDOC.CTH ---
Cardiology Progress Note - Subjective present today. No current complaints. - Objective Vital Signs Temp Pulse Resp BP Pulse Ox 09/27/17 04:15 98.2 F 76 16 138/84 96 09/27/17 00:06 98.4 F 78 16 111/72 91 L 09/26/17 20:25 99 F 78 20 92 L 09/26/17 20:14 99 F 78 20 103/65 92 L Admit Weight 156 lb 4.924 oz Weight 171 lb 3.2 oz 09/25/17 09/26/17 09/27/17 06:59 06:59 06:59 Intake Total 2088 2260 Output Total 2300 3225 Balance -212 -965 - Physical Examination General/Neuro: alert & oriented x3, NAD Neck: no JVD present Lungs: CTA, unlabored respirations Heart: RRR Abdomen: NT/ND, soft Extremities: + femoral B - Labs Result Diagrams: 09/27/17 05:39 09/27/17 05:39 - Assessment/Plan 1. afib 2. Sepsis 3. CEllulitis Stable Discussed with at length (primary closer on). She is unsure about taking ACT. She understnads the risks of CVA but is concerned about bleeding with one evnet of afib. She will think about it and let me know tomorrow Recommend eliquis 5mg BID if she decides to take ACT on BB Will order a three week monitor to assess for further episodes as outpatient
[2017-09-27 06:06] LABS: #Eosinphils 0.3 thou/uL (0.0-0.7); #Lymphocytes 1.1 thou/uL (1.20-3.40); #Monocytes 0.6 thou/uL (0.11-0.59); %Basophils 0.6 % (0.0-1.0); %Eosinophils 5.1 % (0.0-10.0); %Lymphocytes 17.5 % (21.0-51.0); %Monocytes 10.3 % (0.0-10.0); %Neutrophils 66.6 % (42.0-75.0); Hemoglobin 10.1 g/dL (14.0-18.0); Mean Corpuscular Hemoglobin 28.4 pg (27.0-31.0); Mean Corpuscular Volume 88.8 fL (78.0-98.0); Mean Platelet Volume 8.1 fL (7.4-10.4); Platelet Count 286 thou/uL (130-400); RBC Distribution Width 15.8 % (11.5-14.5); Red Blood Cell (RBC) Count 3.54 mill/uL (4.70-6.10)
[2017-09-27 06:15] LABS: Anion Gap 19 mmol/L (10-20); BUN (Urea Nitrogen) 4 mg/dL (8.4-25.7); Calc. Creatinine Clearance 128 mL/min (70-130); Calcium 8.6 mg/dL (7.8-10.44); Carbon Dioxide 21 mmol/L (23-31); Chloride 99 mmol/L (98-107); Estimated GFR-MDRD Greater than 90; Glucose 62 mg/dL (80-115); Magnesium 1.5 mg/dL (1.6-2.6); Phosphorus 3.3 mg/dL (2.3-4.7); Sodium 135 mmol/L (136-145)
[2017-09-27] MEDS: Metoprolol Tartrate 25 MG TAB PO SCH ×2 (08:20→20:50)
[2017-09-27] MEDS: Potassium Chloride 10 MEQ TAB PO SCH (08:20)
[2017-09-27] MEDS: Calcium Carbonate + Vit D 1 TAB PO SCH (08:20)
[2017-09-27] MEDS: Amlodipine 5 MG TAB PO SCH (08:21)
[2017-09-27] MEDS: Folic Acid 1 MG TAB PO SCH (08:22)
[2017-09-27] MEDS: Penicillin V Potassium 250 MG TAB PO SCH ×4 (08:41→20:49)
--- NOTE | 2017-09-27 09:16 | PRG ---
DATE OF SERVICE: 09/27/2017 SUBJECTIVE: The patient is improving from a physical standpoint. His ambulation is increasing daily . From a cardiac standpoint, he has remained stable. Lovenox and Eliquis had been recommended. No complaints of any chest pain or shortness of breath. The is mainly concerned about his decrease d appetite and weakness. He remains mostly be sedentary. He does have a 30-year history of rheumato id arthritis and is relatively immobile at home. OBJECTIVE: VITAL SIGNS: Temperature 98.0, pulse 83, respiration 16, blood pressure 129/78. HEART: Regular rate and rhythm. LUNGS: Clear. ABDOMEN: Soft and nontender. ASSESSMENT: 1. Postop day #2 status post debridement of the right elbow abscess. 2. Brief episode of atrial fibrillation, resolved. Dr. Sheridan is recommending Lovenox in the hos pital and Eliquis 5 b.i.d. upon discharge. 3. Long history of rheumatoid arthritis. 4. Decreased appetite. 5. Diarrhea, improving, but still present. Probiotics has been started. PLAN: 1. As above. 2. Continue to increase physical activity and hopefully the patient's appetite will continue to incr ease. Hopefully, can discharge in the next several days.
[2017-09-27 11:42] VITALS: BMI 23.8
[2017-09-27] MEDS: Floranex Packet PO SCH (12:22)
[2017-09-27] MEDS: Bupropion 150 MG SR TAB PO SCH ×2 (12:22→20:50)
[2017-09-27] MEDS: Enoxaparin Sodium 80 MG/0.8 ML SYRINGE SC SCH ×2 (12:23→20:51)
[2017-09-27] MEDS: Rosuvastatin 20 MG TAB PO SCH (20:51)
[2017-09-28] MEDS: Clindamycin 150 MG CAP PO SCH ×4 (03:00→21:08)
[2017-09-28] MEDS: HYDROcodone/Acetaminophen 10/325 mg Tablet PO PRN ×3 (05:27→18:57)
[2017-09-28 06:19] LABS: #Eosinphils 0.3 thou/uL (0.0-0.7); #Lymphocytes 1.2 thou/uL (1.20-3.40); #Monocytes 0.6 thou/uL (0.11-0.59); #Neutrophils 3.1 thou/uL (1.40-6.50); %Basophils 0.7 % (0.0-1.0); %Eosinophils 5.4 % (0.0-10.0); %Lymphocytes 23.1 % (21.0-51.0); %Monocytes 10.8 % (0.0-10.0); Hemoglobin 10.7 g/dL (14.0-18.0); Mean Corpuscular HGB CONC 32.4 g/dL (32.0-36.0); Mean Corpuscular Hemoglobin 29.1 pg (27.0-31.0); Mean Corpuscular Volume 89.6 fL (78.0-98.0); Mean Platelet Volume 8.3 fL (7.4-10.4); Platelet Count 298 thou/uL (130-400); RBC Distribution Width 15.7 % (11.5-14.5); Red Blood Cell (RBC) Count 3.67 mill/uL (4.70-6.10); White Blood Cell (WBC) Count 5.1 thou/uL (4.8-10.8)
[2017-09-28 06:27] LABS: Anion Gap 17 mmol/L (10-20); BUN (Urea Nitrogen) Less than 4 mg/dL (8.4-25.7); Calc. Creatinine Clearance 132 mL/min (70-130); Carbon Dioxide 23 mmol/L (23-31); Chloride 101 mmol/L (98-107); Estimated GFR-MDRD Greater than 90; Glucose 69 mg/dL (80-115); Magnesium 1.3 mg/dL (1.6-2.6); Phosphorus 3.4 mg/dL (2.3-4.7); Potassium 3.7 mmol/L (3.5-5.1); Sodium 137 mmol/L (136-145)
[2017-09-28] MEDS: Calcium Carbonate + Vit D 1 TAB PO SCH (10:23)
[2017-09-28] MEDS: Potassium Chloride 10 MEQ TAB PO SCH (10:23)
[2017-09-28] MEDS: Amlodipine 5 MG TAB PO SCH (10:23)
[2017-09-28] MEDS: Enoxaparin Sodium 80 MG/0.8 ML SYRINGE SC SCH ×2 (10:24→21:08)
[2017-09-28] MEDS: Metoprolol Tartrate 25 MG TAB PO SCH ×2 (10:24→21:09)
[2017-09-28] MEDS: Folic Acid 1 MG TAB PO SCH (10:24)
[2017-09-28] MEDS: Penicillin V Potassium 250 MG TAB PO SCH ×4 (10:25→21:09)
[2017-09-28] MEDS: Bupropion 150 MG SR TAB PO SCH ×2 (10:25→21:08)
[2017-09-28] MEDS: Floranex Packet PO SCH (10:26)
--- NOTE | 2017-09-28 10:42 | PRG ---
DATE OF SERVICE: 09/28/2017 SUBJECTIVE: The patient is increasing his ambulation daily. His right elbow from an ortho standpoin t has been stable. His stated that it is difficult to encourage his activity. OBJECTIVE: VITAL SIGNS: Temperature 98.2, pulse 76, respiration 12, blood pressure 125/77. HEART: Regular rate and rhythm. LUNGS: Clear. ABDOMEN: Soft. LABORATORY DATA: White count 5.1, H&H of 10 and 32. Electrolytes normal. Creatinine 0.63, BUN 4. Blood sugar 69. ASSESSMENT: 1. Postop day #3, status post debridement of the right elbow abscess. 2. Brief episode of atrial fibrillation. Dr. Sheridan recommended Lovenox in the hospital and Eliq uis 5 mg b.i.d. upon discharge. 3. Long history of rheumatoid arthritis. 4. Appetite, improving. 5. Diarrhea, stable. PLAN: 1. No meals in bed. 2. Ambulate t.i.d. 3. Discontinue Mckeon. 4. Hopefully, can discharge in the next 1-2 days.
[2017-09-28] MEDS: Rosuvastatin 20 MG TAB PO SCH (21:09)
[2017-09-29] MEDS: Clindamycin 150 MG CAP PO SCH ×3 (03:22→21:58)
[2017-09-29] MEDS: HYDROcodone/Acetaminophen 10/325 mg Tablet PO PRN ×3 (03:25→17:02)
[2017-09-29 05:15] LABS: #Basophils 0.1 thou/uL (0.0-0.2); #Eosinphils 0.3 thou/uL (0.0-0.7); #Lymphocytes 1.2 thou/uL (1.20-3.40); #Monocytes 0.5 thou/uL (0.11-0.59); #Neutrophils 2.9 thou/uL (1.40-6.50); %Basophils 1.2 % (0.0-1.0); %Eosinophils 6.4 % (0.0-10.0); %Lymphocytes 24.4 % (21.0-51.0); %Monocytes 9.6 % (0.0-10.0); %Neutrophils 58.4 % (42.0-75.0); Hemoglobin 9.9 g/dL (14.0-18.0); Mean Corpuscular HGB CONC 31.9 g/dL (32.0-36.0); Mean Corpuscular Hemoglobin 28.5 pg (27.0-31.0); Mean Corpuscular Volume 89.4 fL (78.0-98.0); Platelet Count 361 thou/uL (130-400); RBC Distribution Width 15.8 % (11.5-14.5); Red Blood Cell (RBC) Count 3.46 mill/uL (4.70-6.10)
[2017-09-29 05:24] LABS: Anion Gap 14 mmol/L (10-20); BUN (Urea Nitrogen) Less than 4 mg/dL (8.4-25.7); Calc. Creatinine Clearance 122 mL/min (70-130); Calcium 8.8 mg/dL (7.8-10.44); Carbon Dioxide 27 mmol/L (23-31); Chloride 100 mmol/L (98-107); Estimated GFR-MDRD Greater than 90; Glucose 86 mg/dL (80-115); Magnesium 1.3 mg/dL (1.6-2.6); Phosphorus 3.7 mg/dL (2.3-4.7); Potassium 3.4 mmol/L (3.5-5.1); Sodium 138 mmol/L (136-145)
--- NOTE | 2017-09-29 08:01 | DIS ---
DATE OF ADMISSION: 09/19/2017 DATE OF DISCHARGE: 09/29/2017 DISCHARGE DIAGNOSES: 1. Postoperative day #4, status post debridement of right elbow abscess. 2. Brief episode of atrial fibrillation. 3. Long history of rheumatoid arthritis. 4. Diarrhea, resolved. DISCHARGE MEDICATIONS: Norvasc 5 mg daily, bupropion 150 b.i.d., calcium daily, clindamycin 300 t.i. d. #30, , metoprolol 25 p.o. b.i.d., Protonix 40 daily, Crestor 20 daily. Other meds per Dr. Michelle carpenter. Plavix 75 daily, Arava 20 daily, prednisone 5 q.i.d., Lyrica 100 p.o. b.i.d. BRIEF HISTORY: This is a 62-year-old white male with known history of rheumatoid arthritis, chronic pain syndrome, previous history of CVA, previous history of pulmonary embolism, who presented to the hospital with weakness, vomiting, and diarrhea. He has had frequent falls this recently. noted that he was feeling weak for the past 3-5 days with vomiting and diarrhea. There was no blood in th e bowel movement. He presented to the emergency room very weak and hypotensive. He was placed on IV fluids and a Levophed drip and blood cultures were taken. He did have a wound on his right arm or r ight elbow from a fall. He was also found to have a temperature of 102 in the emergency room and he was given some Tylenol. He responded to the fluids. HOSPITAL COURSE: The patient was admitted. He was placed on clindamycin and penicillin. Dr. Elias son was consulted and he did an I and D of a right elbow abscess. He has also had a brief episode of atrial fibrillation and converted to sinus rhythm. Because of this, Dr. Sheridan is recommending [address] Velazquez was also consulted and recommended a PPI. Patient's diarrhea resolved s pontaneously. He received aggressive physical therapy while in the hospital. He is now ambulating a round the entire floor. At this point, he is strongly desiring to go home. We sent him home on the above medications. He will follow up with Dr. Izquierdo this week, and Dr. Izquierdo will give him further d irections on his medications for his rheumatoid arthritis. LABORATORY DATA: White count 5.0, H and H 9.9 and 31.0. Electrolytes: Sodium 138, potassium 3.4. Urine was negative.
[2017-09-29] MEDS: Metoprolol Tartrate 25 MG TAB PO SCH ×2 (09:29→22:00)
[2017-09-29] MEDS: Bupropion 150 MG SR TAB PO SCH ×2 (09:29→21:59)
[2017-09-29] MEDS: Calcium Carbonate + Vit D 1 TAB PO SCH (09:29)
[2017-09-29] MEDS: Folic Acid 1 MG TAB PO SCH (09:30)
[2017-09-29] MEDS: Potassium Chloride 10 MEQ TAB PO SCH (09:31)
[2017-09-29] MEDS: Floranex Packet PO SCH (09:31)
[2017-09-29] MEDS: Penicillin V Potassium 250 MG TAB PO SCH ×4 (09:31→22:00)
[2017-09-29] MEDS: Amlodipine 5 MG TAB PO SCH (09:31)
[2017-09-29] MEDS: Enoxaparin Sodium 80 MG/0.8 ML SYRINGE SC SCH ×2 (09:32→21:59)
--- NOTE | 2017-09-29 17:06 | EKG ---
Test Reason : TACHY Blood Pressure : / mmHG Vent. Rate : 171 BPM Atrial Rate : 182 BPM P-R Int : 000 ms QRS Dur : 078 ms QT Int : 252 ms P-R-T Axes : 258 048 -65 degrees QTc Int : 425 ms Atrial flutter with variable conduction with ventricular premature complexes ST depression, consider subendocardial injury Abnormal ECG Confirmed by RAMBO JOSEPH (2) on 09/29/2017 5:05:43 PM Referred By: SPRING LEMON Confirmed By:RAMBO JOSEPH
[2017-09-29] MEDS: Rosuvastatin 20 MG TAB PO SCH (22:00)
[2017-09-30] MEDS: Clindamycin 150 MG CAP PO SCH ×2 (03:55→12:10)
[2017-09-30 05:24] LABS: #Eosinphils 0.4 thou/uL (0.0-0.7); #Lymphocytes 1.2 thou/uL (1.20-3.40); #Monocytes 0.5 thou/uL (0.11-0.59); #Neutrophils 2.7 thou/uL (1.40-6.50); %Basophils 0.9 % (0.0-1.0); %Eosinophils 8.7 % (0.0-10.0); %Lymphocytes 24.9 % (21.0-51.0); %Monocytes 10.1 % (0.0-10.0); %Neutrophils 55.4 % (42.0-75.0); Hemoglobin 10.5 g/dL (14.0-18.0); Mean Corpuscular HGB CONC 32.9 g/dL (32.0-36.0); Mean Corpuscular Hemoglobin 29.1 pg (27.0-31.0); Mean Corpuscular Volume 88.6 fL (78.0-98.0); Mean Platelet Volume 8.2 fL (7.4-10.4); Platelet Count 404 thou/uL (130-400); RBC Distribution Width 15.5 % (11.5-14.5); Red Blood Cell (RBC) Count 3.62 mill/uL (4.70-6.10); White Blood Cell (WBC) Count 4.8 thou/uL (4.8-10.8)
[2017-09-30 05:34] LABS: Anion Gap 14 mmol/L (10-20); BUN (Urea Nitrogen) Less than 4 mg/dL (8.4-25.7); Calc. Creatinine Clearance 126 mL/min (70-130); Calcium 8.9 mg/dL (7.8-10.44); Carbon Dioxide 23 mmol/L (23-31); Chloride 101 mmol/L (98-107); Estimated GFR-MDRD Greater than 90; Glucose 88 mg/dL (80-115); Magnesium 1.2 mg/dL (1.6-2.6); Phosphorus 3.6 mg/dL (2.3-4.7); Potassium 3.4 mmol/L (3.5-5.1); Sodium 135 mmol/L (136-145)
[2017-09-30] MEDS: Potassium Chloride 10 MEQ TAB PO SCH (08:50)
[2017-09-30] MEDS: Floranex Packet PO SCH (08:51)
[2017-09-30] MEDS: Amlodipine 5 MG TAB PO SCH (08:51)
[2017-09-30] MEDS: Folic Acid 1 MG TAB PO SCH (08:52)
[2017-09-30] MEDS: Metoprolol Tartrate 25 MG TAB PO SCH (08:52)
[2017-09-30] MEDS: Calcium Carbonate + Vit D 1 TAB PO SCH (08:52)
[2017-09-30] MEDS: Bupropion 150 MG SR TAB PO SCH (08:52)
[2017-09-30] MEDS: Penicillin V Potassium 250 MG TAB PO SCH ×2 (08:53→12:52)
[2017-09-30] MEDS: Enoxaparin Sodium 80 MG/0.8 ML SYRINGE SC SCH (08:54)
[2017-09-30 15:42] VITALS: BP 107/72; TEMP 98.2
[2017-10-02 10:28] LABS: Fungus Stain Final report (.)
== END 2017-09-30 16:47 | disposition home or self-care (01) | DRG 871 ==
LOC: ERS 17:52 → CCU 21:51 → 2NO 09-22 21:52 → SURG B 09-26 16:57
PROVIDERS: ADMIT Family Medicine; ATTEND Family Medicine
PROC: 0HBDXZZ Excision of Right Lower Arm Skin, External Approach (ICD-10-PCS; principal; 2017-09-26)
DX: A40.0 Sepsis due to streptococcus, group A (principal); R65.21 Severe sepsis with septic shock; L02.413 Cutaneous abscess of right upper limb; L03.113 Cellulitis of right upper limb; M00.9 Pyogenic arthritis, unspecified; N17.9 Acute kidney failure, unspecified; I48.91 Unspecified atrial fibrillation; M06.9 Rheumatoid arthritis, unspecified; R19.7 Diarrhea, unspecified; G89.4 Chronic pain syndrome; M71.121 Other infective bursitis, right elbow; E83.42 Hypomagnesemia; I10 Essential (primary) hypertension; H60.11 Cellulitis of right external ear; E87.6 Hypokalemia; E83.39 Other disorders of phosphorus metabolism; K21.9 Gastro-esophageal reflux disease without esophagitis; D63.8 Anemia in other chronic diseases classified elsewhere; Z86.73 Personal history of transient ischemic attack (TIA), and cerebral infarction without residual deficits; Z86.711 Personal history of pulmonary embolism
CPT/HCPCS: 29105; 36415; 36416; 36430; 36556; 51701; 71045; 74176; 80048; 80053; 80202; 81003; 82550; 83605; 83630; 83690; 83735; 84100; 85025; 86850; 86900; 86901; 87040; 87045; 87046; 87070; 87077; 87086; 87102; 87186; 87205; 87206; 87324; 87449; 87899; 93005; 93010; 93306; 96365; 96366; 96375; A4216; C9113; G8978-GP-CK; G8978-GP-CN; G8979-GP-CJ; G8979-GP-CK; G8987-GO-CJ; G8988-GO-CI; J0153; J0282; J1160; J1170; J1650; J1720; J2270; J2405; J2540; J2543; J2704; J3010; J3370; J3475; J3480; J3490; J7050; J7070; P9016

== ENCOUNTER 2017-10-03 09:20 | Outpatient (CLI) | payer MEDICARE ==
--- NOTE | 2017-10-03 10:55 | RAD ---
CHEST TWO VIEWS: History: 62-year-old male with history of dyspnea. FINDINGS: Heart size is normal. Minimal pleural and parenchymal changes in the left mid lateral chest with asso ciated healed rib fractures. This appears to be slightly more prominent when compared to a 09-19-17 st udy, but has improved when dating back to 05-22-17. Biapical pleural thickening. Old granuloma calcifi cation in the right base. IMPRESSION: Minimal pleural and pleural based parenchymal changes in the left mid lateral chest slightly more mar ked than 09-19-17 but improved when compared to an earlier 05-22-17 study. No significant other new pro cess. Depending upon concern, continued short term follow up in regards to the left mid lateral chest pleural and parenchymal changes. POS: OFF
== END 2017-10-03 09:21 | disposition home or self-care (01) ==
LOC: RAD 09:20
PROVIDERS: ATTEND Internal Medicine Critical Care Medicine
DX: R06.00 Dyspnea, unspecified (principal)
CPT/HCPCS: 71046

== ENCOUNTER 2017-10-03 13:37 | Outpatient (CLI) | payer MEDICARE ==
[2017-10-03] MEDS ORDERED: Sodium Chloride 0.9% 15 ML NEB ONE (16:38)
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
== END 2017-10-03 13:38 | disposition home or self-care (01) ==
LOC: WCC 13:37
PROVIDERS: ATTEND Family Medicine
DX: T81.89XD Other complications of procedures, not elsewhere classified, subsequent encounter (principal); M06.9 Rheumatoid arthritis, unspecified; K27.9 Peptic ulcer, site unspecified, unspecified as acute or chronic, without hemorrhage or perforation; I10 Essential (primary) hypertension; K21.9 Gastro-esophageal reflux disease without esophagitis; M81.0 Age-related osteoporosis without current pathological fracture; K75.9 Inflammatory liver disease, unspecified; Z86.73 Personal history of transient ischemic attack (TIA), and cerebral infarction without residual deficits
CPT/HCPCS: 97139; 97605; G0463; 99203; A4218

== ENCOUNTER 2017-10-06 16:49 | Emergency (ER) | payer MEDICARE ==
[2017-10-06 17:54] LABS: Hemoglobin 9.6 g/dL (14.0-18.0); Mean Corpuscular HGB CONC 32.4 g/dL (32.0-36.0); Mean Corpuscular Hemoglobin 28.5 pg (27.0-31.0); Mean Platelet Volume 9.1 fL (7.4-10.4); Platelet Count 455 thou/uL (130-400); RBC Distribution Width 16.3 % (11.5-14.5); Red Blood Cell (RBC) Count 3.38 mill/uL (4.70-6.10); White Blood Cell (WBC) Count 5.4 thou/uL (4.8-10.8)
[2017-10-06 17:55] LABS: INR-International Normal Ratio 1.5; PTT 37.8 SEC (22.9-36.1); Prothrombin Time 18.6 SEC (12.0-14.7)
[2017-10-06 18:03] LABS: ALT (SGPT) 9 U/L (8-55); AST (SGOT) 15 U/L (5-34); Albumin 3.6 g/dL (3.4-4.8); Alkaline Phosphatase 92 U/L (40-150); Anion Gap 20 mmol/L (10-20); BUN (Urea Nitrogen) 21 mg/dL (8.4-25.7); Bilirubin, Total Less than 0.2 mg/dL (0.2-1.2); CK (CPK) 57 U/L (30-200); Calc. Creatinine Clearance 0 mL/min (70-130); Calcium 7.9 mg/dL (7.8-10.44); Carbon Dioxide 15 mmol/L (23-31); Chloride 108 mmol/L (98-107); Estimated GFR-MDRD 31; Globulin 2.6 g/dL (2.4-3.5); Glucose 99 mg/dL (80-115); Potassium 3.9 mmol/L (3.5-5.1); Protein, Total 6.2 g/dL (5.8-8.1); Sodium 139 mmol/L (136-145)
[2017-10-06 18:07] LABS: CKMB 1.5 ng/mL (0-6.6); Troponin I Less than 0.010 ng/mL (< 0.028)
[2017-10-06 18:21] LABS: Anisocytosis SLIGHT = 6-15 cells (100X) (0-5/hpf); Band 9 % (5-11); Hypochromia SLIGHT = 6-15 cells (100X) (0-5/hpf); Lymphocytes 21 % (21-51); MDiff Complete? YES; Monocytes 8 % (0-10); Neutrophil 62 % (42-75); PLT Morphology Comment Appears Adequate
== END 2017-10-06 19:39 | disposition home or self-care (01) ==
LOC: ERS 16:49
DX: Z04.3 Encounter for examination and observation following other accident (principal); Z86.73 Personal history of transient ischemic attack (TIA), and cerebral infarction without residual deficits; E78.5 Hyperlipidemia, unspecified; I10 Essential (primary) hypertension; Z87.891 Personal history of nicotine dependence; F32.9 Major depressive disorder, single episode, unspecified; W01.0XXA Fall on same level from slipping, tripping and stumbling without subsequent striking against object, initial encounter
CPT/HCPCS: 80053; 82553; 84484; 85025; 85610; 85730; 86850; 86900; 86901; 93005

== ENCOUNTER 2017-10-07 09:43 | Inpatient (IN) | payer MEDICARE ==
[2017-10-07 10:46] LABS: #Basophils 0.2 thou/uL (0.0-0.2); #Eosinphils 0.1 thou/uL (0.0-0.7); #Monocytes 0.6 thou/uL (0.11-0.59); #Neutrophils 4.1 thou/uL (1.40-6.50); %Basophils 2.7 % (0.0-1.0); %Eosinophils 1.1 % (0.0-10.0); %Lymphocytes 17.5 % (21.0-51.0); %Monocytes 10.2 % (0.0-10.0); %Neutrophils 68.5 % (42.0-75.0); Hemoglobin 9.4 g/dL (14.0-18.0); Mean Corpuscular HGB CONC 32.5 g/dL (32.0-36.0); Mean Corpuscular Hemoglobin 28.6 pg (27.0-31.0); Mean Corpuscular Volume 87.9 fL (78.0-98.0); Platelet Count 435 thou/uL (130-400); RBC Distribution Width 16.2 % (11.5-14.5); Red Blood Cell (RBC) Count 3.29 mill/uL (4.70-6.10)
[2017-10-07] MEDS ORDERED: Hydrocortisone Sod Succ/PF 100 mg/2 ml Vial ONE (10:59)
[2017-10-07 11:07] LABS: ALT (SGPT) 8 U/L (8-55); AST (SGOT) 10 U/L (5-34); Albumin 3.7 g/dL (3.4-4.8); Alkaline Phosphatase 92 U/L (40-150); Anion Gap 20 mmol/L (10-20); BUN (Urea Nitrogen) 25 mg/dL (8.4-25.7); Bilirubin, Total Less than 0.2 mg/dL (0.2-1.2); Calc. Creatinine Clearance 0 mL/min (70-130); Carbon Dioxide 15 mmol/L (23-31); Chloride 107 mmol/L (98-107); Estimated GFR-MDRD 26; Globulin 2.7 g/dL (2.4-3.5); Glucose 77 mg/dL (80-115); Potassium 3.8 mmol/L (3.5-5.1); Protein, Total 6.4 g/dL (5.8-8.1); Sodium 138 mmol/L (136-145)
[2017-10-07 11:13] LABS: CKMB 1.4 ng/mL (0-6.6); Troponin I Less than 0.010 ng/mL (< 0.028)
--- NOTE | 2017-10-07 13:56 | RAD ---
PORTABLE CHEST 1 VIEW: Date: 10/07/17 Time: 1224 hours HISTORY: Multiple falls. FINDINGS/IMPRESSION: Comparison made with exam of 10/03/17. The heart size is normal. The lungs are well expanded without lobar consolidation, pneumothoraces, or pleural effusions. Old rib fractures are present. POS: [facility]
[2017-10-07 15:16] LABS: Bilirubin Negative (Negative); Blood, Urine Negative (Negative); Clarity CLEAR (Clear); Glucose, Urine (Dipstick) Negative (Negative); Leukocyte Negative (Negative); Nitrite Negative (Negative); Protein, Urine (Dipstick) Negative (Neg-Trace); Specific Gravity, Urine 1.007 (1.002-1.036); Urobilinogen 0.2 mg/dL (0.2-1.0)
[2017-10-07] MEDS ORDERED: Acetaminophen 650 MG/20.3 ML UDCUP PO PRN (16:42)
[2017-10-07] MEDS ORDERED: CCU Electrolyte Replacement 1 EACH IVPB ONE (16:42)
[2017-10-07] MEDS ORDERED: Sodium Chloride 0.9% 1,000 ML IV SCH (16:45)
[2017-10-07] MEDS ORDERED: CCU ELECTROLYTE REPLACEMENT PROTOCOL FS PRN (16:51)
[2017-10-07] MEDS ORDERED: Potassium Phosphate 9 MMOL in Sodium Chloride 0.9% 100 ML IVPB PRN (16:51)
[2017-10-07] MEDS ORDERED: Potassium Chloride 20 MEQ TAB PO PRN (16:51)
[2017-10-07] MEDS ORDERED: Potassium Phosphate 12 MMOL in Sodium Chloride 0.9% 250 ML 250 ML IV PRN (16:51)
[2017-10-07] MEDS ORDERED: Potassium Phosphate 15 MMOL in Sodium Chloride 0.9% 250 ML 250 ML IV PRN (16:51)
[2017-10-07] MEDS ORDERED: Magnesium Oxide 400 MG TAB PO PRN ×2 (16:51)
[2017-10-07] MEDS ORDERED: Magnesium 2 GM/NS 0.9% 100 ML 2 GM in Premix Bag 1 BAG IVPB PRN (16:51)
[2017-10-07] MEDS ORDERED: Potassium Chloride 40 MEQ in Premix Bag 1 BAG IVPB PRN (16:51)
[2017-10-07] MEDS ORDERED: Potassium Chloride 40 MEQ in Sodium Chloride 0.9% 250 ML 250 ML IVPB PRN (16:51)
[2017-10-07] MEDS: Dextrose 5 % And 0.9 % NaCl 1,000 ML IV SCH ×2 (19:25→23:52)
[2017-10-07] MEDS ORDERED: Pregabalin 50 MG CAP PO SCH (21:00)
[2017-10-07] MEDS ORDERED: buPROPion 75 MG TAB PO SCH (21:00)
--- NOTE | 2017-10-07 21:14 | CON ---
DATE OF CONSULTATION: 10/07/2017 Following encompassed 70 minutes of time. Of that time, greater than 50% was spent with and/or in th e patient's unit in the hospital. CONSULTING PHYSICIAN: Dr. Luis Izquierdo. REASON FOR CONSULTATION: Low blood pressure. HISTORY OF PRESENT ILLNESS: Mr. Jiménez is a 62-year-old male whom I have seen before in the office i n regards to a left-sided lung mass, which ended up being a lung abscess. In fact, I had just seen h im in the office last week and he was doing very well. He had been admitted to the hospital a week b efore last by Dr. Izquierdo after having weakness and episodes of vomiting and diarrhea. The patient say s he felt great when he went home and did well for a few days, but yesterday he sustained a fall when he stood up and felt weak. He fell in his knees but did not injure anything. He actually came to [facility] emergency room last night, did not have any notable injuries. He was noted to be hypotensive with systolic blood pressure in the 70s and his ER note says he was told to address that with his primary care physician. I do not see records of anything else being done. Today, he went to Dr. Neal of [facility] for routine GI followup appointment. He says he felt faint there, but got through the appointme nt. He subsequently went home, got up again and fell almost identical to yesterday's situation and s ubsequently came back to the ER. In the ER, he has again been hypotensive. PAST MEDICAL HISTORY: 1. Rheumatoid arthritis. 2. Chronic pain. 3. Left lung abscess. 4. Stroke. 5. Hypertension. 6. Hyperlipidemia. 7. Supraventricular tachycardia, controlled with amiodarone. 8. Chronic anticoagulation. 9. Atrial fibrillation which I believe was recently diagnosed. PAST SURGICAL HISTORY: Negative. SOCIAL HISTORY: The patient is disabled. Quit smoking many years ago. Lives at home. ALLERGIES: REGLAN. MEDICATIONS PRIOR TO ADMISSION: Quinapril/hydrochlorothiazide 20/12.5 one daily, bupropion 150 mg b. i.d., Crestor 20 mg daily, Lyrica 100 mg b.i.d., Prevacid 30 mg daily, prednisone 1 mg 4 times daily, leflunomide 20 mg daily, amlodipine 5 mg daily, calcium plus vitamin D one daily, vitamin E daily, f olate 0.4 mg daily, Protonix 40 mg daily, Eliquis 5 mg b.i.d. and metoprolol 25 mg b.i.d. FAMILY MEDICAL HISTORY: Unremarkable. REVIEW OF SYSTEMS: Twelve-point review of systems is otherwise negative except that mentioned above. PHYSICAL EXAMINATION: VITAL SIGNS: Temperature 98, pulse 71, blood pressure 107/71, O2 sat 98%, respiratory rate 15. GENERAL: He is awake, alert, joking around with the nurses, did not seem to be in any distress. Of note, he gets 4 liters of fluid in the ER. HEENT: Pupils react. Sclerae anicteric. Oropharynx clear. NECK: Without adenopathy or JVD. LUNGS: Clear without any audible wheezing or rhonchi. CARDIAC: S1, S2 regular. No audible murmur. ABDOMEN: Soft and nontender. EXTREMITIES: Without clubbing, cyanosis, or edema. He has some bruising over his knees, but nothing profound. LABORATORY DATA: White blood cell count 6, hematocrit 28.9, platelet count 435. Sodium 130, potassi um 3.8, chloride 107, CO2 of 15, anion gap 20, BUN 25, creatinine 2.4, glucose 77. Lactate 0.9, trop onin less than 0.01. His current H&H is not too far off H&H seen in September when he was in the hospital, but he has been higher in the past, most recently in August. ASSESSMENT: 1. Hypotension, which I think is secondary to volume depletion. He did also have some occult bleedi ng issues that had not been diagnosed. 2. Multiple other medical problems as listed above that are chronic in nature and do not seem to be exacerbated. RECOMMENDATIONS: I would recommend continuing volume administration with holding his antihypertensiv es. I think we need to discontinue the anticoagulation for the time being. Check his stool and mayb e consider GI workup for the anemia in the future if that has not already been done. I will discuss with Dr. Izquierdo.
--- NOTE | 2017-10-07 22:24 | HP ---
DATE: 10/07/2017 ADMITTING PHYSICIAN: Luis Izquierdo M.D. HISTORY OF PRESENT ILLNESS: Patient is a 62-year-old male who has had recently multiple falls, who w as brought back to the emergency room and found to have an elevated creatinine. He has recently been hospitalized here for sepsis as well as wound to his right elbow and his right ear associated with a cute kidney injury. He has gone home and has done fairly well at home until he noticed several falls over the last several days. He was seen in Dr. Daniel' office this morning, he was found to be fair ly weak. He was transferred to the ER here. Upon arrival to the ER, he was found to have a creatini ne elevation, but really no other major findings other than an elevated creatinine. He denies any na usea, vomiting, diarrhea, no fever, no productive cough, no chest pain, no shortness of breath, recei aniyah 4 liters of fluid in the ER. He still was running slight hypotension. It was reported to me facundo t the patient was going to be admitted to the floor IMCU. He has now been admitted to the ICU, has a lso been reported to me he is admitted to the ICU because there was no personnel for IMCU. It has al so been reported to me that he was going to be started on pressors, but this has never been ordered u nder any circumstances that I can find. He has had an ICU consult, multiple orders have already been written. Otherwise, no other medical co mplaints are noted. As noted, he recently hospitalized for sepsis, possibly due to right ear infecti on of the pinna as well as a right elbow infection that currently has a wound VAC in place. Otherwis e, no other medical complaints are noted. ALLERGIES: He is allergic to METOCLOPRAMIDE. CURRENT MEDICATIONS: Quinapril 20/12.5 one daily, bupropion 150 mg daily, Crestor 10 mg daily, Ni a 100 mg daily, lansoprazole 30 mg daily, prednisone 1 mg daily, leflunomide 20 mg daily, amlodipine 5 mg daily, calcium 1 tablet daily, folic acid 0.4 mg daily, Eliquis 5 mg b.i.d., metoprolol 25 mg b. i.d., vitamin E 1 tablet daily. PAST MEDICAL HISTORY: Positive for chronic pain, rheumatoid arthritis, history of previous lung lesi on that has now appeared to be well. PAST SURGICAL HISTORY: Positive for recent elbow surgery as well as hernia repair. SOCIAL/PERSONAL HISTORY: He does not smoke nor does he drink alcohol. He lives at home with his wif e who is his primary caregiver. He is able to ambulate, take most care of himself. PHYSICAL EXAMINATION: VITAL SIGNS: His temperature 98.6, pulse 70, respirations 15, O2 sats 96% on room air. GENERAL: He is alert, active, not in any distress. HEENT: Normocephalic, atraumatic. Extraocular muscles are intact. Sclerae and conjunctivae are perlita ar. Throat clear. NECK: Supple, full range of motion, no masses. LUNGS: Clear. HEART: Reveals regular rate and rhythm without murmurs, gallops or rubs. ABDOMEN: Soft, nontender, bowel sounds present and active. No hepatosplenomegaly is noted. There i s no evidence of rebound or guarding noted at this time. EXTREMITIES: There is a wound VAC in place to the right elbow. SKIN: Lesion in the right ear has previously been noted has healed. LABORATORY DATA: His white blood count of 6.0, hemoglobin 9.4, hematocrit 28.9. Electrolytes, sodiu m 138, potassium 3.8, chloride 107, CO2 of 15, BUN 25, creatinine 2.49. Urinalysis otherwise clear. Lactic acid 0.9. Chest x-ray is clear. IMPRESSION: This is a 62-year-old male appears to be clinically dehydrated. He may be somewhat over medicated from his hypertensive medicines, possibly could stop quinapril. PLAN: The patient will receive IV fluid hydration. ICU consult has been obtained. Further care dagoberto l be depending on what his clinical response is.
[2017-10-08 04:18] LABS: Band 4 % (5-11); Eosinophils 1 % (0-10); Hemoglobin 8.5 g/dL (14.0-18.0); Lymphocytes 37 % (21-51); MDiff Complete? YES; Mean Corpuscular HGB CONC 33.9 g/dL (32.0-36.0); Mean Corpuscular Hemoglobin 30.3 pg (27.0-31.0); Mean Corpuscular Volume 89.3 fL (78.0-98.0); Monocytes 11 % (0-10); Neutrophil 47 % (42-75); Platelet Count 348 thou/uL (130-400); RBC Distribution Width 16.2 % (11.5-14.5); Red Blood Cell (RBC) Count 2.81 mill/uL (4.70-6.10); White Blood Cell (WBC) Count 4.6 thou/uL (4.8-10.8)
[2017-10-08 04:28] LABS: Anion Gap 12 mmol/L (10-20); BUN (Urea Nitrogen) 15 mg/dL (8.4-25.7); Calc. Creatinine Clearance 80 mL/min (70-130); Calcium 7.6 mg/dL (7.8-10.44); Carbon Dioxide 17 mmol/L (23-31); Chloride 118 mmol/L (98-107); Estimated GFR-MDRD 72; Glucose 86 mg/dL (80-115); Potassium 3.4 mmol/L (3.5-5.1); Sodium 144 mmol/L (136-145)
[2017-10-08] MEDS: Dextrose 5 % And 0.9 % NaCl 1,000 ML IV SCH ×5 (05:20→21:54)
[2017-10-08 06:08] VITALS: BMI 24.7
[2017-10-08] MEDS ORDERED: TRAMADOL HCL 300 MG PO PRN (07:34)
--- NOTE | 2017-10-08 07:35 | PRG ---
DATE OF SERVICE: 10/08/2017 SUBJECTIVE: The patient feels better today. He says his only complaint is that he is tired. PHYSICAL EXAMINATION: VITAL SIGNS: On exam, his temperature is 97.7, pulse 82, blood pressure 99/59, O2 saturation 96%. HEENT: Unremarkable. NECK: No JVD. LUNGS: Clear. CARDIAC: S1 and S2, regular. ABDOMEN: Soft. EXTREMITIES: No edema. LABORATORY DATA: White blood cell count 4.6, hemoglobin 8.5, hematocrit 25.1, platelet count 348. S odium 144, potassium 3.4, chloride 118, CO2 of 17, BUN 15, creatinine 1.0, glucose 86. ASSESSMENT: 1. Profound volume depletion leading to orthostatic hypotension. 2. Anemia. 3. History of left upper lobe cavitary abscess, which has largely resolved. 4. Rheumatoid arthritis. 5. Chronic pain. 6. Atrial fibrillation. PLAN: From my standpoint, he can be transferred out to the floor for further workup. Stool guaiac s tudies are pending. The patient may need further investigation by GI.
--- NOTE | 2017-10-08 07:59 | PRG ---
DATE OF SERVICE: 10/08/2017 SUBJECTIVE: Mr. Rushing is resting in bed, appears to be alert and awake. He did verbalizes, no comp laints. PHYSICAL EXAMINATION: VITAL SIGNS: His last blood pressure was 99/59; however, current reading does show to be as high as 119/71, pulse 83 and regular. LUNGS: Clear. HEART: Reveals no murmur. ABDOMEN: Soft, nontender, bowel sounds present and active. LABORATORY DATA: His hemoglobin is 8.5, hematocrit 25.1. Chemistry: Sodium 144, potassium 3.4, chl oride 118, CO2 17, BUN 15, creatinine 1.04. IMPRESSION: Volume depletion. PLAN: 1. We will discontinue his lisinopril, hydrochlorothiazide at this time. 2. Renewed all of his blood pressure medicines. 3. May transfer to floor.
[2017-10-08] MEDS: Amlodipine 5 MG TAB PO SCH (08:56)
[2017-10-08] MEDS: Apixaban 5 MG TAB PO SCH ×2 (08:56→21:53)
[2017-10-08] MEDS: Folic Acid 1 MG TAB PO SCH (08:56)
[2017-10-08] MEDS: Bupropion 150 MG SR TAB PO SCH ×2 (08:56→20:13)
[2017-10-08] MEDS: Metoprolol Tartrate 25 MG TAB PO SCH ×2 (08:57→20:14)
[2017-10-08] MEDS: Calcium Carbonate + Vit D 1 TAB PO SCH (08:57)
[2017-10-08] MEDS: Clopidogrel Bisulfate 75 MG TAB PO SCH (08:57)
[2017-10-08] MEDS: predniSONE 20 MG TAB PO SCH (08:59)
[2017-10-08] MEDS ORDERED: Non-Formulary Item 1 EACH (Lansoprazole [Lansoprazole] 30 MG) PO SCH (09:00)
[2017-10-08] MEDS ORDERED: Leflunomide 10 mg Tablet PO SCH (09:00)
[2017-10-08] MEDS: Pregabalin 50 MG CAP PO SCH ×2 (09:03→20:13)
[2017-10-08] MEDS: Leflunomide 10 mg Tablet PO SCH (09:04)
[2017-10-08] MEDS: Clindamycin 150 MG CAP PO SCH ×2 (11:43→20:12)
[2017-10-08] MEDS: traMADol HCl 50 MG TAB PO PRN (20:15)
[2017-10-08] MEDS ORDERED: Rosuvastatin 20 MG TAB PO SCH (21:00)
[2017-10-09] MEDS: traMADol HCl 50 MG TAB PO PRN ×2 (02:28→11:45)
[2017-10-09] MEDS: Dextrose 5 % And 0.9 % NaCl 1,000 ML IV SCH ×2 (02:45→08:47)
[2017-10-09] MEDS ORDERED: Acetaminophen 325 MG TAB ONE (02:51)
[2017-10-09] MEDS: Clindamycin 150 MG CAP PO SCH ×2 (05:05→11:45)
[2017-10-09] MEDS ORDERED: Acetaminophen 325 MG TAB PO PRN (06:15)
[2017-10-09 08:06] VITALS: TEMP 99.3
[2017-10-09] MEDS: Pregabalin 50 MG CAP PO SCH (08:38)
[2017-10-09] MEDS: Bupropion 150 MG SR TAB PO SCH (08:38)
[2017-10-09] MEDS: Folic Acid 1 MG TAB PO SCH (08:39)
[2017-10-09] MEDS: Calcium Carbonate + Vit D 1 TAB PO SCH (08:39)
[2017-10-09] MEDS: Metoprolol Tartrate 25 MG TAB PO SCH (08:39)
[2017-10-09] MEDS: predniSONE 20 MG TAB PO SCH (08:39)
[2017-10-09] MEDS: Amlodipine 5 MG TAB PO SCH (08:39)
[2017-10-09] MEDS: Clopidogrel Bisulfate 75 MG TAB PO SCH (08:40)
[2017-10-09] MEDS: Leflunomide 10 mg Tablet PO SCH (08:40)
[2017-10-09] MEDS: Apixaban 5 MG TAB PO SCH (09:23)
[2017-10-09 13:01] VITALS: BP 148/88
--- NOTE | 2017-10-09 13:02 | PRG ---
DATE OF SERVICE: 10/09/2017 SUBJECTIVE: Mr. Jiménez is doing well. He is ready to go home. His creatinine remains normal. His blood cultures are negative. He is eager to get out of here. OBJECTIVE: LUNGS: Clear. HEART: Reveals a regular rate and rhythm without murmurs, gallops or rubs. VITAL SIGNS: Blood pressure 137/92. IMPRESSION: 1. Acute dehydration with acute renal injury, now resolved. 2. Anemia. 3. Previous sepsis. 4. Cellulitis, right elbow. PLAN: The patient will be discharged home. His medicines will be reconciled by me and follow up wit h me in 1 month.
--- NOTE | 2017-10-10 11:58 | DIS ---
DATE OF ADMISSION: 10/07/2017 DATE OF DISCHARGE: 10/09/2017 DISCHARGE DIAGNOSES: 1. Acute kidney injury, dehydration. 2. Hypertension. ADMITTING PHYSICIAN: Dr. Luis Izquierdo. HOSPITAL SUMMARY: The patient is a 62-year-old male patient with previous history of recent admissio n for sepsis, cellulitis, anemia. He was at the GI doctor's office the day of admission, found to be acutely hypotensive, sent to the emergency room, he was found to be hypotensive, dehydrated with an acute kidney injury with a creatinine of 2.37, subsequently admitted to the hospital, begun on IV flu ids. Blood pressure medicines were adjusted. He responded well. His blood cultures remained negative. The blood pressures did recover his hydrat ion status and acute kidney injury resolved. He was discharged home on 10/09/2017 in good condition. MEDICATIONS AT TIME OF DISCHARGE: .
== END 2017-10-09 17:11 | disposition home or self-care (01) | DRG 683 ==
LOC: ERS 09:43 → CCU 14:39 → ONC 10-08 11:30
PROVIDERS: ADMIT Family Medicine; ATTEND Family Medicine
DX: N17.9 Acute kidney failure, unspecified (principal); L03.113 Cellulitis of right upper limb; E86.0 Dehydration; M06.9 Rheumatoid arthritis, unspecified; I48.91 Unspecified atrial fibrillation; D64.9 Anemia, unspecified; G89.29 Other chronic pain; I95.1 Orthostatic hypotension; E78.5 Hyperlipidemia, unspecified; Z86.73 Personal history of transient ischemic attack (TIA), and cerebral infarction without residual deficits
CPT/HCPCS: 36415; 71045; 80048; 80053; 81003; 82274; 82553; 83605; 83735; 84484; 85007; 85025; 85027; 85610; 85730; 86850; 86900; 86901; 87040; 87149; 93005; 96361; 96374; G8978-GP-CJ; G8979-GP-CJ; G8980-GP-CJ; J1720; J7506

== ENCOUNTER 2017-10-10 14:57 | Outpatient (CLI) | payer MEDICARE ==
[~2017-10-10 14:57] MED LIST: Sodium Chloride 0.9% 15 ML NEB ONE
== END 2017-10-10 14:58 | disposition home or self-care (01) ==
LOC: WCC 14:57
PROVIDERS: ATTEND Family Medicine
DX: M05.79 Rheumatoid arthritis with rheumatoid factor of multiple sites without organ or systems involvement (principal)
CPT/HCPCS: 97605; A4218

== ENCOUNTER 2017-10-17 07:55 | Outpatient (CLI) | payer MEDICARE ==
--- NOTE | 2017-10-17 09:04 | PRG ---
DATE OF SERVICE: 10/17/2017 HISTORY: Mr. Avni Jiménez is a very pleasant 62-year-old gentleman who presents to the Wound Center for evaluation of a wound of the right elbow subsequent to irrigation and debridement of the r ight posterior elbow with eschar removal. The patient underwent the preceding procedure by Dr. Gabriel Hebert on 09/26/2017. The patient stated that subsequent to surgery during the patient's h ospital stay, negative pressure therapy was initiated. Upon discharge from [facility], the patient was referred to the Wound Center for assistance with dressing changes of the wo und VAC. The patient was discharged to home on clindamycin. PHYSICAL EXAMINATION: VITAL SIGNS: Temperature 97.8, pulse 72, respirations 22, blood pressure 147/89. EXTREMITIES: A wound of the right elbow is present which measures approximately 3.2 x 1.7 cm. Granu lation tissue is present within the wound margins. No purulent drainage is associated with the wound . No cellulitis of the right elbow is appreciated. No maceration of the skin of the periwound is no aly. ASSESSMENT AND PLAN: 1. Right elbow wound as described above. Negative pressure therapy will be continued with dressing changes of the wound VAC 2 times per week here in the Wound Center. The patient will be seen by Orth opedic Surgery in 1 week. I will see Mr. Jiménez again in 2 weeks. Four sutures are still present ov er the periwound. 2. Rheumatoid arthritis. 3. Peptic ulcer disease. 4. Hypertension. 5. Gastroesophageal reflux disease. 6. History of osteoporosis. 7. Cerebellar infarct. 8. Hepatitis.
[2017-10-17] MEDS ORDERED: Sodium Chloride 0.9% 15 ML NEB ONE (16:44)
== END 2017-10-17 07:56 | disposition home or self-care (01) ==
LOC: WCC 07:55
PROVIDERS: ATTEND Family Medicine
DX: T81.89XD Other complications of procedures, not elsewhere classified, subsequent encounter (principal); M06.9 Rheumatoid arthritis, unspecified; K27.9 Peptic ulcer, site unspecified, unspecified as acute or chronic, without hemorrhage or perforation; I10 Essential (primary) hypertension; K21.9 Gastro-esophageal reflux disease without esophagitis; M81.0 Age-related osteoporosis without current pathological fracture; K75.9 Inflammatory liver disease, unspecified; Z86.73 Personal history of transient ischemic attack (TIA), and cerebral infarction without residual deficits
CPT/HCPCS: A4218

== ENCOUNTER 2017-10-22 09:03 | Outpatient (CLI) | payer MEDICARE | END 2017-10-22 09:04 | disposition home or self-care (01) | LOC: WCC 09:03 | PROVIDERS: ATTEND Family Medicine | DX: S51.001D Unspecified open wound of right elbow, subsequent encounter (principal); K27.9 Peptic ulcer, site unspecified, unspecified as acute or chronic, without hemorrhage or perforation; I10 Essential (primary) hypertension; K21.9 Gastro-esophageal reflux disease without esophagitis; M81.0 Age-related osteoporosis without current pathological fracture; K75.9 Inflammatory liver disease, unspecified; I63.9 Cerebral infarction, unspecified; M05.79 Rheumatoid arthritis with rheumatoid factor of multiple sites without organ or systems involvement | CPT/HCPCS: 97602 ==

== ENCOUNTER 2017-10-24 07:35 | Outpatient (CLI) | payer MEDICARE ==
--- NOTE | 2017-09-28 16:54 | PRG ---
DATE OF SERVICE: 09/28/2017 SUBJECTIVE: Mr. Rushing is doing well, no current complaints. PHYSICAL EXAMINATION: VITAL SIGNS: Blood pressure 119/72, pulse 60, temperature 98. LUNGS: Clear to auscultation. CARDIAC: Regular rate and rhythm. ABDOMEN: Soft, nontender, nondistended. EXTREMITIES: No edema. IMPRESSION: 1. Atrial fibrillation. 2. Previous history of stroke. 3. Cellulitis. RECOMMENDATIONS: I spoke with Mr. Rushing today. He and his decided and opted for anticoagulati on therapy. He is currently on Lovenox subcutaneous b.i.d. Would recommend Eliquis once he is disch arged. I would like to continue Lovenox for now in case any further procedures are needed. Plan as outpatient 3-week monitor. Otherwise, I have no recommendations. We will follow peripherally.
--- NOTE | 2017-10-24 10:34 | RAD ---
CERVICAL SPINE TWO VIEWS: History: 62-year-old male with history of neck pain, cervical radicular pain. FINDINGS: Exam includes flexion and extension lateral views. There is extensive multilevel disc osteophytosis with heterogeneous bony demineralization as well as severe generalized facet arthrosis. No significant prevertebral soft tissue swelling. No abnormal tra nslation between flexion and extension. IMPRESSION: Severe cervical spondylosis with bony demineralization. No abnormal translation between flexion and e xtension. POS: C
--- NOTE | 2017-10-24 11:23 | MRI ---
NONCONTRAST MRI CERVICAL SPINE: Date: 10-24-17 History: Bilateral shoulder pain and neck pain. Cervical radicular pain. Comparison: None available. FINDINGS: Cervical medullary junction has a normal MRI appearance. There are subtle focal areas of increased ar eas of T1 and T2 weighted hyperintensity within the C2 and C3, as well as C4 vertebral bodies which m ay represent either small hemangiomas and/or focal areas of fat. Scattered endplate degenerative byrne ges are seen in the cervical spine. There is straightening of the cervical lordotic curvature with very slight reversal of the cervical l ordotic curvature centered at the level of the c5 vertebral body. C2-3: There is a mild disc osteophyte complex excentric to the left which does not result in signific ant narrowing of the central spinal canal, but there is mild to moderate left sided neural foraminal narrowing. The right neural foramen is widely patent. C3-4: There is a broad based disc osteophyte complex with prominent left sided facet hypertrophic lauren nges. This results in severe left sided neural foraminal narrowing. There is moderate right sided mariana ral foraminal narrowing. There is mild effacement of the left lateral subarachnoid space due to promi nent facet hypertrophic changes. C4-5: There is loss of intervertebral disc space height. A broad based disc osteophyte complex is pre sent with facet hypertrophic changes bilaterally, greater on the right. There is mild narrowing of th e central spinal canal with moderate bilateral neural foraminal narrowing greater on the right. C5-6: There is loss of intervertebral disc space height. There is suggestion of slight retrolisthesis of C5 on C6. Mild facet degenerative changes are present at this level. There is a broad based disc osteophyte complex noted resulting in generalized narrowing of the central spinal canal. There is mod erate bilateral neural foraminal narrowing, greater on the left. C6-7: There is loss of intervertebral disc space height. There is a broad based disc osteophyte compl ex which results in generalized narrowing of the central spinal canal. There is flattening of the ant erior aspect of the spinal cord, but normal signal intensity is present in the spinal cord at this le mejia. There is severe bilateral neural foraminal narrowing, greater on the right. C7-T1: There is minimal disc osteophyte complex, but central spinal canal and neural foramina are pat ent at this level. Linear areas of increased T2 weighted signal intensity are seen in the spinal cord at the C4-5 and C5 -6 levels, which are only seen on the sagittal images and given orientation as well as normal appeara nce of the spinal cord on axial imaging, suggests that this artifactual as opposed to an area of myel omalacia. IMPRESSION: Multilevel degenerative changes in the cervical spine as described above. POS: [facility]
== END 2017-10-24 07:36 | disposition home or self-care (01) ==
LOC: MRI 07:35
PROVIDERS: ATTEND Nurse Practitioner Family
DX: M47.22 Other spondylosis with radiculopathy, cervical region (principal)
CPT/HCPCS: 72040; 72141; 72148

== ENCOUNTER 2017-10-24 08:46 | Outpatient (CLI) | payer MEDICARE | END 2017-10-24 08:47 | disposition home or self-care (01) | LOC: WCC 08:46 | PROVIDERS: ATTEND Family Medicine | DX: S51.001D Unspecified open wound of right elbow, subsequent encounter (principal); M05.79 Rheumatoid arthritis with rheumatoid factor of multiple sites without organ or systems involvement | CPT/HCPCS: 97602 ==

== ENCOUNTER 2017-10-31 12:49 | Outpatient (CLI) | payer MEDICARE ==
--- NOTE | 2017-10-31 13:59 | PRG ---
DATE OF SERVICE: 10/31/2017 HISTORY: Mr. Avni Jiménez is a very pleasant 62-year-old gentleman who presents to the [facility] for evaluation of a wound of the right elbow subsequent to irrigation and debridement of the r ight posterior elbow with eschar removal. The patient underwent the preceding procedure by Dr. Gabriel Hebert on 09/26/2017. The patient stated that subsequent to surgery during the patient's h ospital stay, negative pressure therapy was initiated. Upon discharge from [facility], the patient was referred to the Wound Center for assistance with dressing changes of the wo und VAC. The patient was discharged to home on clindamycin. The patient has completed a course of n egative pressure therapy and is now receiving wet to dry dressing changes as per Orthopedic Surgery. PHYSICAL EXAMINATION: VITAL SIGNS: Temperature 98.2, pulse 81, respirations 22, blood pressure 143/85. EXTREMITIES: A wound of the right elbow is present, which measures approximately 1.9 x 1.6 cm. Gran ulation tissue is present within the wound margins. No purulent drainage is associated with the woun d. No cellulitis of the right elbow is appreciated. No maceration of the skin of the periwound is n oted. The dimensions of the wound at the time of the patient's visit on 10/17/2017 were approximatel y 3.2 x 1.7 cm. ASSESSMENT AND PLAN: 1. Right elbow wound as described above. Wet to dry dressing changes as per Orthopedic Surgery will be continued. I will see Mr. Jiménez again in 2 weeks. 2. Rheumatoid arthritis. 3. Peptic ulcer disease. 4. Hypertension. 5. Gastroesophageal reflux disease. 6. History of osteoporosis. 7. Cerebellar infarct. 8. Hepatitis.
== END 2017-10-31 12:50 | disposition home or self-care (01) ==
LOC: WCC 12:49
PROVIDERS: ATTEND Family Medicine
DX: T81.89XD Other complications of procedures, not elsewhere classified, subsequent encounter (principal); M06.9 Rheumatoid arthritis, unspecified; K27.9 Peptic ulcer, site unspecified, unspecified as acute or chronic, without hemorrhage or perforation; I10 Essential (primary) hypertension; K21.9 Gastro-esophageal reflux disease without esophagitis; I63.9 Cerebral infarction, unspecified; K75.9 Inflammatory liver disease, unspecified; Z87.39 Personal history of other diseases of the musculoskeletal system and connective tissue
CPT/HCPCS: A4218

== ENCOUNTER 2017-11-18 07:56 | Outpatient (CLI) | payer MEDICARE ==
--- NOTE | 2017-11-18 08:38 | PRG ---
DATE OF SERVICE: 11/18/2017 HISTORY: Mr. Avni Jiménez is a very pleasant 62-year-old gentleman who presents to the Wound Center for evaluation of a wound of the right elbow subsequent to irrigation and debridement of the right p osterior elbow with eschar removal. The patient underwent the preceding procedure by Dr. Khari Hebert on 09/26/2017. The patient stated that subsequent to surgery, during the patient's hospit al stay, negative pressure therapy was initiated. Upon discharge from [facility], the patient was referred to the Wound Center for assistance with dressing changes of the wound V AC. The patient was discharged to home on clindamycin. The patient has completed a course of negati ve pressure therapy and continues to perform wet to dry dressing changes as per Orthopedic Surgery. PHYSICAL EXAMINATION: VITAL SIGNS: Temperature 97.8, pulse 76, respirations 20, blood pressure 140/74. EXTREMITIES: A wound of the right elbow is present, which measures approximately 1.1 x 0.8 cm. The dimensions of the wound at the time of the patient's last visit were approximately 1.9 x 1.6 cm. Gra nulation tissue is present within the wound margins. No purulent drainage is associated with the wou nd. No cellulitis of the right elbow is appreciated. No maceration of the skin of the periwound is noted. ASSESSMENT AND PLAN: 1. Right elbow wound as described above. Dressing changes of [place] will be initiated today. Th kendell dressing changes are to be performed on a daily basis after cleansing and irrigation. The patien t will be performing his own dressing changes. I will see Mr. Jiménez again in two weeks if his wound is still present at this time. 2. Rheumatoid arthritis. 3. Peptic ulcer disease. 4. Hypertension. 5. Gastroesophageal reflux disease. 6. History of osteoporosis. 7. Cerebellar infarct. 8. Hepatitis.
[2017-11-18] MEDS ORDERED: Sodium Chloride 0.9% 15 ML NEB ONE (15:45)
== END 2017-11-18 07:57 | disposition home or self-care (01) ==
LOC: WCC 07:56
PROVIDERS: ATTEND Family Medicine
DX: T81.89XD Other complications of procedures, not elsewhere classified, subsequent encounter (principal); M06.9 Rheumatoid arthritis, unspecified; K27.9 Peptic ulcer, site unspecified, unspecified as acute or chronic, without hemorrhage or perforation; I10 Essential (primary) hypertension; K21.9 Gastro-esophageal reflux disease without esophagitis; I63.9 Cerebral infarction, unspecified; K75.9 Inflammatory liver disease, unspecified; Z87.39 Personal history of other diseases of the musculoskeletal system and connective tissue
CPT/HCPCS: 97602; A4218

== ENCOUNTER 2018-01-09 10:10 | Outpatient (CLI) | payer MEDICARE ==
--- NOTE | 2018-01-09 11:52 | RAD ---
LEFT HIP TWO VIEWS: History: 62-year-old male with history of left hip pain. FINDINGS: Hypertrophic osteophytosis changes noted involving the lateral acromion with some generalized degener ative changes. No acute fracture or dislocation. IMPRESSION: Degenerative changes, left hip joint. No fracture or dislocation. POS: [facility]
== END 2018-01-09 10:11 | disposition home or self-care (01) ==
LOC: BICRAD 10:10
PROVIDERS: ATTEND Internal Medicine Rheumatology
DX: M25.552 Pain in left hip (principal); M16.12 Unilateral primary osteoarthritis, left hip